=== PATIENT | male | born 1965 | race Caucasian/White ===

== ENCOUNTER 2021-07-13 15:30 | Outpatient (CLI) | payer OTHER, SELFPAY ==
[2021-07-13 15:46] LABS: Basophils Percent Auto 0.4 % (0.2-1.2); Eosinophils Absolute Auto 0.2 K/mm3 (0-0.3); Eosinophils Percent Auto 3.2 % (0-4.4); Hematocrit 50.2 % (42.0-52.0); Hemoglobin 16.3 g/dL (14.0-18.0); Immature Granulocyte Absolute 0.01 K/mm3 (0.00-0.031); Immature Granulocyte Percent A 0.1 % (0-0.5); Lymphocytes Absolute Auto 1.97 K/mm3 (0.9-3.2); Lymphocytes Percent Auto 28.9 % (18.3-44.2); Mean Corpuscular HGB Conc 32.5 g/dl (32-36); Mean Corpuscular Hemoglobin 28.7 pg (26-34); Mean Corpuscular Volume 88.4 fl (80-100); Mean Platelet Volume 9.6 fl (7.4-10.4); Monocytes Absolute Auto 0.6 K/mm3 (0.1-0.6); Monocytes Percent Auto 8.9 % (2.6-8.5); Neutrophils Percent Auto 58.5 % (45.5-73.1); Platelet Count Result 267 k/mm3 (150-375); Red Blood Count 5.68 M/mm3 (4.6-6.20); Red Cell Distribution Width 13.2 % (11.5-14.5); White Blood Count 6.8 K/mm3 (4.5-10.0)
== END 2021-07-13 15:31 | disposition home or self-care (01) ==
LOC: ANHLAB 15:35
PROVIDERS: PCP Family Medicine; Visit Provider Internal Medicine Hematology & Oncology
DX: D75.1 Secondary polycythemia (principal)
CPT/HCPCS: 36415; 85025

== ENCOUNTER 2022-01-08 11:29 | Outpatient (CLI) | payer OTHER, SELFPAY ==
--- NOTE | ~2022-01-08 | XR_ITS ---
EXAMINATION: XR chest 2V DATE: 01/08/2022 11:48 INDICATION: Syncope and collapse TECHNIQUE: PA and lateral views of the chest were obtained. COMPARISON: 03/24/2015 FINDINGS: The lungs are clear with no focal airspace opacities, pulmonary edema, pleural effusion or pneumothor ax. The cardiomediastinal silhouette is normal. Visualized bones and soft tissues are unremarkable. IMPRESSION: 1. No acute cardiopulmonary disease. Reviewed, dictated and finalized at location A. ILLERY LABORER
--- NOTE | 2022-01-08 11:46 | ECG_ITS ---
Measurements Intervals [place] Rate: 68 P: 9 NH: 168 QRS: -2 QRSD: 88 T: -1 QT: 386 QTc: 411 Interpretive Statements SINUS RHYTHM BORDERLINE ST-T WAVE ABNORMALITY- INFERIOR LEADS BASELINE ARTIFACT- V2 BORDERLINE ECG NO PREVIOUS ECG AVAILABLE FOR COMPARISON Electronically Signed On 01-08-2022 12:00:07 BALLAST REGULATOR OPERATOR by Lenny Garcia D.O.
== END 2022-01-08 11:30 | disposition home or self-care (01) ==
PROVIDERS: PCP Family Medicine; Visit Provider Physician Assistant Medical
DX: R55 Syncope and collapse (principal)
CPT/HCPCS: 71046; 93005

== ENCOUNTER 2022-02-05 12:56 | Outpatient (CLI) | payer OTHER, SELFPAY ==
--- NOTE | 2022-02-05 | ECHO_ITS ---
Patient Info Name: Ricki Yeh Brother Age: 56 years : 1965 Gender: Male Ht: 68 in Wt: 197 lbs BSA: 2.09 m2 HR: 74 bpm BP: 120 / 84 mmHg Heart Rhythm: Sinus Rhythm Technical Quality: Good Exam Date: 02/05/2022 2:30 PM Exam Location: [facility] Patient Status: Outpatient Admit Date: 02/05/2022 Staff Ordering Physician: ROBERTO GUTIERREZ MD Direct Mail Clerk: Conchis Shafer RDCS Attending Provider: ROBERTO GUTIERREZ MD Referring Physician: MATT TSE; Exam Type: CA echo doppler color flow Study Info Indications R55 - Syncope and collapse Complete two-dimensional, color flow and Doppler transthoracic echocardiogram is performed. Summary 1. Complete two-dimensional, color flow and Doppler transthoracic echocardiogram is performed. 2. Left ventricular chamber dimension is normal. 3. Left ventricular systolic function is normal, estimated at 60-65%. 4. There is mildly increased left ventricular wall thickness. 5. The left ventricular diastolic function is normal. 6. Global longitudinal strain is mildly elevated at -15 %. 7. The aortic valve is trileaflet. Focal calcification of noncoronary cusp is appreciated. 8. There is no aortic valve stenosis. 9. There is no aortic valve regurgitation. 10. There is trace mitral valve regurgitation. 11. There is mild tricuspid valve regurgitation. 12. No pulmonary hypertension, estimated pulmonary arterial systolic pressure is 29 mmHg. Left Ventricle Left ventricular chamber dimension is normal. Left ventricular systolic function is normal, estimated at 60-65%. There is mildly increased left ventricular wall thickness. The left ventricular diastolic function is normal. Global longitudinal strain is mildly elevated at -15 %. Right Ventricle Right ventricular chamber dimension is normal. Right ventricular systolic function is normal. Left Atria Left atrial chamber dimension is normal. Right Atria Right atrial chamber dimension is normal. Aortic Valve The aortic valve is trileaflet. Focal calcification of noncoronary cusp is appreciated. There is no aortic valve stenosis. There is no aortic valve regurgitation. Pulmonic Valve The pulmonic valve is not well visualized. Mitral Valve The mitral valve has normal leaflets. There is trace mitral valve regurgitation. Tricuspid Valve The tricuspid valve leaflets are normal. There is mild tricuspid valve regurgitation. No pulmonary hypertension, estimated pulmonary arterial systolic pressure is 29 mmHg. Pericardium/Pleural The pericardium appears epicardial fat pad. There is no pericardial effusion. Inferior Vena Cava Normal inferior vena cava with >50% collapse upon inspiration consistent with normal right atrial pressure, 5 mmHg. Aorta The aortic root size at the sinus of Valsalva is normal. Left Ventricular Outflow Tract Name Value Normal LVOT 2D LVOT Diameter 2.0 cm LVOT Doppler LVOT Peak Gradient 2 mmHg LVOT Mean Gradient 1 mmHg LVOT VTI 16 cm LVOT VTI/AV VTI Ratio
--- NOTE | ~2022-02-05 | US_ITS ---
EXAMINATION: US carotid duplex BI DATE: 02/05/2022 14:01 INDICATION: Syncope TECHNIQUE: Grayscale, color Doppler, and pulsed Doppler images of the cervical carotid arteries were obtained. The degree of vessel stenosis is placed in one of the following categories: normal, <50%, 5 0-69%, >=70% but less than near-occlusion, near-occlusion, or total occlusion. Note that percent sten osis relative to normal distal artery lumen diameter is indirectly measured from velocity measurement s as described by Johnnie, et al. Radiology 2003; 229:340-346. Notes: Normal: Peak systolic velocity <125 centimeters/sec and no plaque <50%. Peak systolic velocity <125 ( EDV <40; ICA/CCA PSV ratio <2.0; used these factors only a tandem lesions or low cardiac output or co ntralateral disease) 50-69 %: PSV 125-230 (EDV 40-100; ratio 2-4) >= 70% but less than near occlusion: PSV greater than 230 (EDV > 100; ratio> 4.0) Near Occlusion: PSV that is variable; markedly narrowed lumen Occlusion: Absent flow on color/spectral Doppler and no lumen on ford scale. COMPARISON: None. FINDINGS: RIGHT: The right common carotid artery (CCA) peak systolic velocity (PSV) is 87 cm/s. The right internal car otid artery (ICA) PSV is 93 cm/s. The right ICA end-diastolic velocity (EDV) is 19 cm/s. The right IC A/CCA PSV ratio is 1.1. The external carotid artery (ECA) PSV is 109 cm/s. There is antegrade flow in the right vertebral artery. LEFT: The left CCA PSV is 84 cm/s. The left ICA PSV is 78 cm/s. The left ICA EDV is 20 cm/s. The left ICA/C CA PSV ratio is 1.0. The ECA PSV is 111 cm/s. There is antegrade flow in the left vertebral artery. IMPRESSION: 1. Less than 50% stenosis in the right internal carotid artery by sonographic criteria. 2. Less than 50% stenosis in the left internal carotid artery by sonographic criteria. Reviewed, dictated and finalized at location A. LANE CAPTAIN IMPRESSION: 1. Less than 50% stenosis in the right internal carotid artery by sonographic lupillo boyd. 2. Less than 50% stenosis in the left internal carotid artery by sonographic joseph koehler.
== END 2022-02-05 12:57 | disposition home or self-care (01) ==
PROVIDERS: PCP Family Medicine
DX: R55 Syncope and collapse (principal); I65.23 Occlusion and stenosis of bilateral carotid arteries
CPT/HCPCS: 93306; 93880

== ENCOUNTER 2022-03-02 08:41 | Outpatient (CLI) | payer OTHER, SELFPAY ==
--- NOTE | 2022-03-02 13:54 | WPDNEUROLOGY ---
Neurology EEG Report General Information Date of Study: 03/02/22 TEST eeg DIAGNOSIS syncopal episode with collapse CONDITION OF RECORDING awake drowsy and sleep EEG NUMBER [id number] CLINICAL HISTORY patient reported couple of weeks ago he had a bad cold and lost consciousness 7 times within 30 hours from coughing
--- NOTE | 2022-03-02 14:00 | WPDNEUROLOGY ---
Neurology EEG Report General Information Date of Study: 03/02/22 TEST EEG DIAGNOSIS syncope and collapse CONDITION OF RECORDING awake drowsy and sleep EEG NUMBER [id number] CLINICAL HISTORY patient reports couple of weeks ago he had a bad cold and loss consciousness 7 times within 30 hours from coughing EEG DESCRIPTION background rhythm consists of low-voltage 15 to 21 hertz per 2nd beta activity with no alf posterior gradient. Bilateral symmetrical sleep activity seen during sleep admixed with regular EKG artifact. Hyperventilation not done. Photic stimulation produces normal drive. Non paroxysmal. Nonfocal. Nonlateralizing. IMPRESSION No significant abnormalities noted
== END 2022-03-02 08:42 | disposition home or self-care (01) ==
PROVIDERS: PCP Family Medicine; Visit Provider Family Medicine
DX: R55 Syncope and collapse (principal)
CPT/HCPCS: 95816

== ENCOUNTER 2022-04-18 15:15 | Outpatient (CLI) | payer OTHER, SELFPAY ==
[2022-04-18 15:24] LABS: Basophils Percent Auto 0.3 % (0.2-1.2); Eosinophils Absolute Auto 0.3 K/mm3 (0-0.3); Eosinophils Percent Auto 3.7 % (0-4.4); Hematocrit 49.3 % (42.0-52.0); Hemoglobin 16.5 g/dL (14.0-18.0); Immature Granulocyte Absolute 0.02 K/mm3 (0.00-0.031); Immature Granulocyte Percent A 0.3 % (0-0.5); Lymphocytes Absolute Auto 2.31 K/mm3 (0.9-3.2); Lymphocytes Percent Auto 29.3 % (18.3-44.2); Mean Corpuscular HGB Conc 33.5 g/dl (32-36); Mean Corpuscular Hemoglobin 27.4 pg (26-34); Mean Corpuscular Volume 81.8 fl (80-100); Mean Platelet Volume 9.3 fl (7.4-10.4); Monocytes Absolute Auto 0.7 K/mm3 (0.1-0.6); Monocytes Percent Auto 8.4 % (2.6-8.5); Neutrophils Absolute Auto 4.6 K/mm3 (1.3-6.7); Platelet Count Result 211 k/mm3 (150-375); Red Blood Count 6.03 M/mm3 (4.6-6.20); Red Cell Distribution Width 13.5 % (11.5-14.5); White Blood Count 7.9 K/mm3 (4.5-10.0)
== END 2022-04-18 15:16 | disposition home or self-care (01) ==
LOC: ANHLAB 15:16
PROVIDERS: PCP Family Medicine; Visit Provider Internal Medicine Hematology & Oncology
DX: D75.1 Secondary polycythemia (principal)
CPT/HCPCS: 36415; 85025

== ENCOUNTER → 2022-11-02 13:28 | Outpatient (CLI) | payer OTHER, SELFPAY ==
--- NOTE | ~2022-11-02 | XR_ITS ---
EXAMINATION: XR cervical spine min 6V DATE: 11/02/2022 13:54 INDICATION: Radiculopathy, cervical region. Neck pain radiating down left arm. TECHNIQUE: 8 views of cervical spine including flexion and extension views were obtained. COMPARISON: None. FINDINGS: Bone alignment is normal. There is no abnormal motion with flexion or extension. Vertebral body heights are normal. There is mildly decreased disc height at C4-C5 and C5-C6 and severely decrea sed disc height at C6-C7. There is multilevel uncovertebral joint osteoarthritis, severe bilaterally at C6-C7. There is multilevel mild facet joint osteoarthritis. There is moderate neural foraminal eleazar nosis bilaterally at C6-C7. There is mild central canal stenosis at C6-C7. No prevertebral soft tissu e swelling. IMPRESSION: 1. Severe cervical spondylosis. Reviewed, dictated and finalized at location E.
== END ==
PROVIDERS: PCP Family Medicine; Visit Provider Chiropractor
DX: M54.12 Radiculopathy, cervical region (principal); M43.02 Spondylolysis, cervical region
CPT/HCPCS: 72052

== ENCOUNTER 2023-11-22 13:24 | Outpatient (CLI) | payer OTHER, SELFPAY ==
--- NOTE | ~2023-11-22 | CT_ITS ---
Non-contrast Head CT History: Amnesia Technique: Axial non-contrast imaging of the brain was performed. Dose reduction technique was used on this scan by utilizing automated exposure control and iterative reconstruction technique. The dose -length product (DLP) was 599.57 mGy-cm. Findings: There is no evidence of intracranial hemorrhage, mass lesion, or acute infarct. Brain par enchyma appears normal. The ventricles and subarachnoid spaces are normal in size. The calvarium ap pears normal. The visualized paranasal sinuses and mastoid air cells are clear. Impression: No significant abnormality seen. Reviewed, dictated and finalized at location . Impression: No significant abnormality seen.
== END 2023-11-22 13:25 | disposition home or self-care (01) ==
PROVIDERS: PCP Family Medicine; Visit Provider Family Medicine
DX: R41.3 Other amnesia (principal); R42 Dizziness and giddiness
CPT/HCPCS: 70450

== ENCOUNTER 2024-02-07 11:46 | Outpatient (CLI) | payer OTHER, SELFPAY ==
[2024-02-07 11:54] LABS: Basophils Percent Auto 0.4 % (0.2-1.2); Eosinophils Absolute Auto 0.1 K/mm3 (0-0.3); Eosinophils Percent Auto 0.9 % (0-4.4); Hematocrit 42.3 % (42.0-52.0); Immature Granulocyte Absolute 0.02 K/mm3 (0.00-0.031); Immature Granulocyte Percent A 0.3 % (0-0.5); Lymphocytes Absolute Auto 0.72 K/mm3 (0.9-3.2); Lymphocytes Percent Auto 9.6 % (18.3-44.2); Mean Corpuscular HGB Conc 28.4 g/dl (32-36); Mean Corpuscular Hemoglobin 19.6 pg (26-34); Monocytes Absolute Auto 0.5 K/mm3 (0.1-0.6); Monocytes Percent Auto 6.8 % (2.6-8.5); Neutrophils Absolute Auto 6.1 K/mm3 (1.3-6.7); Platelet Count Result 179 k/mm3 (150-375); Red Blood Count 6.13 M/mm3 (4.6-6.20); Red Cell Distribution Width 19.8 % (11.5-14.5); White Blood Count 7.5 K/mm3 (4.5-10.0)
[2024-02-07 11:58] LABS: Anisocytosis 1+; Microcytosis 1+ (NORMAL); Ovalocytes 1+; Platelet Estimate Adequate (Adequate); Schistocytes None Seen
[2024-02-07 11:59] LABS: Poikilocytosis 1+
[2024-02-07 15:08] LABS: Iron 30 ug/dL (49-181)
[2024-02-07 15:22] LABS: Percent Iron Saturation 6 % (20-50)
[2024-02-07 15:46] LABS: Ferritin 4.78 ng/mL (11.1-264)
== END 2024-02-07 11:47 | disposition home or self-care (01) ==
PROVIDERS: PCP Family Medicine; Visit Provider Internal Medicine Hematology & Oncology
DX: D64.9 Anemia, unspecified (principal); D75.1 Secondary polycythemia
CPT/HCPCS: 36415; 82728; 83540; 83550; 85025

== ENCOUNTER 2024-03-26 13:41 | Outpatient (CLI) | payer OTHER, SELFPAY ==
--- NOTE | 2024-03-26 14:00 | ECG_ITS ---
Test Date: 2024-03-26 14:08:08 Measurements Intervals [place] Rate: 71 P: 32 FL: 177 QRS: -7 QRSD: 92 T: 15 QT: 377 QTc: 412 Interpretive Statements SINUS RHYTHM No previous ECG available for comparison Electronically Signed On 03-26-2024 14:14:57 SAFETY INVESTIGATOR by Gavi Lombardo
== END 2024-03-26 13:42 | disposition home or self-care (01) ==
PROVIDERS: PCP Family Medicine; Visit Provider Podiatrist Foot & Ankle Surgery
DX: R03.0 Elevated blood-pressure reading, without diagnosis of hypertension (principal)
CPT/HCPCS: 93005

== ENCOUNTER 2024-11-19 15:54 | Outpatient (CLI) | payer OTHER, SELFPAY ==
--- OUTSIDE RECORDS SUMMARY | 2024-11-19 11:00 | XMS_ITS | Encounter Summary ---
Author Organization [facility] Address [address] [place] [address] Care Team Providers Care Valuation Manager Name Role Phone Brock Abernathy MD Primary Care Provider [phone] Reason for Referral * Consultation (Routine) - Pending Review Specialty Diagnoses / Procedures Referred By Contac t Referred To Contact Neurology Diagnoses Gait disturbance Memory loss Syncope, unspecified syncope type Brock Abernathy MD [address] [place] [address] Phone: tel: fax: Drew Goldsmith MD [address] [place] [phone] Phone: tel: fax: Referral ID Status Reason Start Date Expiration Date Visits Requested Visits Authorized [id number] Pending Review Specialty Services Required 11/19/2024 12/19/2025 1 1 Question Answer Please select the performing region: [facility] [[id number]] Please select the performing department: [facility] BL[facility]LE 250 [[id number]] To Provider NOTE: we will do our best to honor your provider preference, but scheduling the patient in a timely manner in our clinic will take precedence. DREW GOLDSMITH [[id number]] # of visits: 1 Comments only please * MRI/CAT/PET Scan (Routine) - Pending Review Specialty Diagnoses / Procedures Referred By Contac t Referred To Contact Radiology Diagnoses Gait disturbance Memory loss Syncope, unspecified syncope type Procedures MRI Brain WO Contrast Brock Abernathy MD [address] [place] [phone] Phone: tel: fax: [facility] [address] [place] [address] Referral ID Status Reason Start Date Expiration Date V isits Requested Visits Authorized [id number] Pending Review 11/19/2024 12/19/2025 1 1 * Diagnostic Imaging (Routine) - Authorized Specialty Diagnoses / Procedures Referred By Amaya t Referred To Contact Diagnoses Liver cyst Procedures US Liver Brock Abernathy MD [address] [place] [phone] Phone: tel: fax: [facility] Referral ID Status Reason Start Date Expiration Date V isits Requested Visits Authorized [id number] Authorized 11/19/2024 12/19/2025 1 1 Reason for Visit * Reason Comments Establish Care Memory Loss Neurology referral ct scan results Encounter Details Date Type Department Care Team (Late st Contact Info) Description 11/19/2024 11:00 AM CDT Office Visit [facility] Family Medicine [address] [facility] [address] [place] [phone] Brock Abernathy MD [address] [place] [phone] Hypertension, essential (Primary Dx); Moderate major depression (HCC); Other hyperlipidemia; 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; Gastroesophageal reflux disease without esophagitis; Vitamin D insufficiency; Elevated TSH; Liver cyst; Gait disturbance; Memory loss; Syncope, unspecified syncope type; Polycythemia Social History Tobacco Use Types Packs/Day Years Used Date Smoking Tobacco: Never Smokeless Tobacco: Never Tobacco Cessation:Counseling Given: Not Answered Alcohol Use Standard Drinks/Week Comments Yes 0 (1 standard drink = 0.6 oz pur e alcohol) PHQ-2 Answer Date Recorded PHQ-2 Total Score (If total score is 3 or more points, staff should administer the PHQ-9) 0 11/19/2024 PHQ-9 Answer Date Recorded PHQ-9 Total Score 7 11/19/2024 AUDIT-C Answer Date Recorded Q1: How often do you have a drink containing alc ohol? Monthly or less 11/19/2024 Q2: How many drinks containi ng alcohol do you have on a typical day when you are drinking? 1 or 2 11/19/2024 Q3: How often do you have si x or more drinks on one occasion? Never 11/19/2024 Sex and Gender Information Value Date Recorded Sex Assigned at Not on file Legal Sex Male 4:29 AM [employer] Gender Identity Not on file Sexual Orientation Not on file documented as of this encounter Last Filed Vital Signs Vital Sign Reading Time Taken Comments Blood Pressure 112/68 11/19/2024 9:58 AM CDT Pulse 74 11/19/2024 9:58 AM CDT Temperature - - Respiratory Rate 18 11/19/2024 9:58 AM CDT Oxygen Saturation 94% 11/19/2024 9:58 AM CDT Inhaled Oxygen Concentration - - Weight 79.2 kg (174 lb 9.6 oz) 11/19/2024 9:58 A M CDT Height 172.7 cm (5' 8) 11/19/2024 9:58 AM CDT Body Mass Index 26.55 11/19/2024 9:58 AM CDT documented in this encounter Functional Status * AUDIT-C Score Answer Date of Assessment Author 1 11/19/2024 9:58 AM CDT Kendy Robb MA * Question Answer Date of Assessment Author Q1: How often do you have a drink containing alcohol? Monthly or less 11/19/2024 9:58 AM OLINDAT Saima Robb MA Q2: How many drinks containing alcohol do you have on a typical day when you are drinking? 1 or 2 11/19/2024 9:58 AM OLINDAT Casandra Robb MA Q3: How often do you have six or more drinks on one occasion? Never 11/19/2024 9:58 AM CDT Casandra Robb MA documented as of this encounter Patient Instructions * Patient Instructions* Brock Abernathy MD - 11/19/2024 11:00 AM CDT Check BP 5 times a week documented in this encounter Ordered Prescriptions Prescription Sig Dispense Quantity Refills Last Filled Start Date End Date omeprazole OTC (PriLOSEC OTC) 20 mg EC tabletIndications: Gastroesophageal reflux disease without esophagitis Take 1 tablet (20 mg total) by mouth daily for 120 doses 60 tablet 1 11/19/2024 03/19/2025 documented in this encounter Progress Notes * Brock Abernathy MD - 11/19/2024 11:00 AM CDT Images from the original note were not included. PATIENT VISIT Ricki Yeh Brother is a 59 y.o. male here for Chief Complaint Patient presents with [facility] Care Memory Loss Neurology referral ct scan results Past Surgical History: Procedure Laterality Date APPENDECTOMY ELBOW SURGERY Bilateral EYE SURGERY SHOULDER SURGERY Bilateral TONSILLECTOMY Family History Problem Relation Age of Onset Cancer Mother 50 - 59 Alzheimer's disease Father 70 - 79 Memory loss Father 50 - 59 Diabetes Brother 40 - 49 Social History Tobacco Use Smoking status: Never Smokeless tobacco: Never Substance and Sexual Activity Drug use: Never Sexual activity: Yes Partners: Female control/protection: None Alcohol Use: Not At Risk (11/19/2024) AUDIT-C Frequency of Alcohol Consumption: Monthly or less Average Number of Drinks: 1 or 2 Frequency of Binge Drinking: Never No Known Allergies Outpatient Encounter Medications as of 11/19/2024 Medication Sig Dispense Refill allopurinoL (ZYLOPRIM) 300 mg tablet Take 1 tablet (300 mg total) by mouth daily aspirin 81 mg enteric coated tablet Take 1 tablet (81 mg total) by mouth daily busPIRone (BUSPAR) 5 mg tablet 1 tablet (5 mg total) 3 (three) times a day losartan (COZAAR) 50 mg tablet Take 1 tablet (50 mg total) by mouth daily omeprazole (PriLOSEC) 40 mg capsule Take 1 capsule (40 mg total) by mouth daily rOPINIRole (REQUIP) 0.5 mg tablet Take 1 tablet (0.5 mg total) by mouth nightly at bedtime rosuvastatin (CRESTOR) 20 mg tablet Take 1 tablet (20 mg total) by mouth daily sertraline (ZOLOFT) 100 mg tablet Take 2 tablets (200 mg total) by mouth traZODone (DESYREL) 100 mg tablet TAKE 1 TABLET BY MOUTH EVERY DAY AT BEDTIME NEEDED FOR INSOMNIA No facility-administered encounter medications on file as of 11/19/2024. SUBJECTIVE: HPI: Patient with multiple chronic conditions, follows up with specialists Hypertension, currently controlled on losartan, however patient does have concerns of symptoms of hypotension sometimes there is a concern that blood pressure is over controlled, denies any headacheshowever does have blurry vision symptoms Patient had spells of passing out and syncope mainly related to intense reactions including laughter and cough. Patient had this issue for 3 years, full workup was completed at the time with no significant findings, it was decided that patient has vasovagal syncope, last episode was 1 month ago, patient's PCP prescribed omeprazole to decreased cough associated with GERD so patient can have less episodes of syncope, slightly improved but still have this episodes with laughter. Patient is suffering from issues with memory loss, mainly short-term memory, can not recall locations of things he put aside, recently has been asking people at work to teach him to do stuff he is todo very well previously, symptoms feels confused. Patient does have history of depression, was started recently on BuSpar in addition to Zoloft. He states his depression is very well controlled Patient also is concerned about tripping more frequently and his gait being abnormal sometimes, this all has been worsening in the last month Of note also, patient has been following up with Hematology for polycythemia, JAK2 testing was negative. Patient was donating blood to get hematocrit level down, however after donation patient started suffering from iron deficiency anemia. Patient is not a smoker. ROS: Review of Systems Constitutional: Negative for fatigue and unexpected weight change. Eyes: Positive for visual disturbance. Respiratory: Positive for cough. Negative for chest tightness and shortness of breath. Cardiovascular: Negative for chest pain, palpitations and leg swelling. Gastrointestinal: Negative for abdominal pain, constipation and diarrhea. Endocrine: Negative for cold intolerance and heat intolerance. Genitourinary: Delayed ejaculation Musculoskeletal: Positive for gait problem. Neurological: Positive for syncope. Negative for dizziness, weakness and headaches. Psychiatric/Behavioral: Positive for confusion and decreased concentration. Negative for agitation.The patient is not nervous/anxious. OBJECTIVE: BP 112/68 Pulse 74 Resp 18 Ht 172.7 cm (5' 8) Wt 79.2 kg (174 lb 9.6 oz) SpO2 94% BMI 26.55 kg/m?? Physical Exam Constitutional: General: He is not in acute distress. Appearance: Normal appearance. HENT: Head: Normocephalic and atraumatic. Neck: Vascular: No carotid bruit. Cardiovascular: Rate and Rhythm: Normal rate and regular rhythm. Heart sounds: No murmur heard. No gallop. Pulmonary: Effort: Pulmonary effort is normal. Breath sounds: Normal breath sounds. Musculoskeletal: Cervical back: Normal range of motion. Right lower leg: No edema. Left lower leg: No edema. Skin: General: Skin is warm. Capillary Refill: Capillary refill takes less than 2 seconds. Neurological: General: No focal deficit present. Mental Status: He is alert and oriented to person, place, and time. Motor: No weakness. Coordination: Coordination normal. Gait: Gait normal. Psychiatric: Mood and Affect: Mood normal. Behavior: Behavior normal. Judgment: Judgment normal. In Office Testing: No results found for this or any previous visit (from the past 4 hours). 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 Continue allopurinol Hypertension, essential Concerns for being over controlled, leading to hypotension and possible vasovagal syncope Continue losartan for now daily at the same time Instructed to obtain multiple blood pressure readings Might need to possibly stop the medication Gastroesophageal reflux disease without esophagitis No endoscopy performed Patient instructed taking the omeprazole as needed Orders: omeprazole OTC (PriLOSEC OTC) 20 mg EC tablet; Take 1 tablet (20 mg total) by mouth daily for 120 doses Vitamin D insufficiency Was found on previous labs on chart review Needs daily supplement of 2000 IU Elevated TSH Was found on chart review for previous labs T4 was unremarkable that time However patient is asymptomatic for tiredness confusion and sexual dysfunction Orders: Thyroid Function [place]; Future Liver cyst Incidental finding on CT abdomen Patient is concerned, we will pursue liver ultrasound to characterize the cyst Orders: US Liver; Future Gait disturbance Started 1 month ago associated with memory loss Concerns for drug-induced movement disorder Orders: Vitamin B12; Future Folate; Future MRI Brain WO Contrast; Future Ambulatory referral to Neurology; Future Memory loss Has been worsening in the last month There is a concern of serotonin syndrome from combining BuSpar and Zoloft Failed cognitive testing at his previous PCP office We will discuss possible discontinuation of BuSpar next visit Orders: Vitamin B12; Future Folate; Future MRI Brain WO Contrast; Future Ambulatory referral to Neurology; Future Syncope, unspecified syncope type Full workup was previously completed Likely vasovagal But currently developing symptoms of gait imbalance and memory loss Might benefit from Urology evaluation Orders: Thyroid Function [place]; Future Vitamin B12; Future Folate; Future MRI Brain WO Contrast; Future Ambulatory referral to Neurology; Future Brock Abernathy MD documented in this encounter Miscellaneous Notes * Assessment & Plan Note - Brock Abernathy MD - 11/19/2024 11:00 AM CDT Associated Problem(s): Moderate major depression (HCC) Currently controlled Continue current medications However there is a concern regarding serotonin syndrome * Assessment & Plan Note - Brock Abernathy MD - 11/19/2024 11:00 AM CDT Associated Problem(s): Other hyperlipidemia Mainly hyper triglyceridemia Last lab checked was in August of this year Continue rosuvastatin We will reassess lipid panel in 6 months * Assessment & Plan Note - Brock Abernathy MD - 11/19/2024 11:00 AM CDT Associated Problem(s): Gout In remission Continue allopurinol * Assessment & Plan Note - Brock Abernathy MD - 11/19/2024 11:00 AM CDT Associated Problem(s): Hypertension, essential Concerns for being over controlled, leading to hypotension and possible vasovagal syncope Continue losartan for now daily at the same time Instructed to obtain multiple blood pressure readings Might need to possibly stop the medication documented in this encounter Plan of Treatment Scheduled Orders Name Type Priority Associated Diagnoses Orde r Schedule US Liver Imaging Schedule Routine , Read Routine (OP Routine) Liver cyst Expected: 11/19/2024, Expires: 11/19/2025 MRI Brain WO Contrast Imaging Schedule Routine, Read Routine (OP Routine) Gait disturbance Memory loss Syncope, unspecified syncope type Expected: 11/19/2024, Expires: 11/19/2025 Vitamin B12 Lab Routine Gait disturbance Memory loss Syncope, unspecified syncope type Expected: 11/22/2024, Expires: 11/19/2025 Thyroid Function [place] Lab Routine Elevated TSH Syncope, unspecified syncope type Expected: 11/19/2024, Expires: 11/19/2025 Folate Lab Routine Gait disturbance Memory loss Syncope, unspecified syncope type Expected: 11/22/2024, Expires: 11/19/2025 Scheduled Referrals Name Type Priority Associated Diagnoses Orde r Schedule Ambulatory referral to Neurology Outpatient Referral Routine Gait disturbance Memory loss Syncope, unspecified syncope type Expected: 11/19/2024 (Approximate), Expires: 11/19/2025 documented as of this encounter Visit Diagnoses Diagnosis Hypertension, essential- Primary Unspecified essential hypertension Moderate major depression (HCC) Major depressive disorder, single episode, moderate Other hyperlipidemia 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 Gastroesophageal reflux disease without esophagitis Esophageal reflux Vitamin D insufficiency Elevated TSH Other abnormal blood chemistry Liver cyst Other specified disorders of liver Gait disturbance Abnormality of gait Memory loss Syncope, unspecified syncope type Polycythemia Polycythemia, secondary documented in this encounter Discontinued Medications Medication Sig Discontinue Reason Start Date End Da te omeprazole (PriLOSEC) 40 mg capsule Take 1 capsule (40 mg total) by mouth daily Therapy completed 08/15/2023 11/19/2024 documented as of this encounter Historical Medications * This list may reflect changes made after this encounter. rosuvastatin (CRESTOR) 20 mg tablet Take 1 tablet (20 mg total) by mouth daily 02/13/2021 losartan (COZAAR) 50 mg tablet Take 1 tablet (50 mg total) by mouth daily 03/16/2021 sertraline (ZOLOFT) 100 mg tablet Take 2 tablets (200 mg total) by mouth 12/22/2021 busPIRone (BUSPAR) 5 mg tablet 1 tablet (5 mg total) 3 (three) times a day 07/18/2024 traZODone (DESYREL) 100 mg tablet TAKE 1 TABLET BY MOUTH EVERY DAY AT BEDTIME NEEDED FOR INSOMNIA allopurinoL (ZYLOPRIM) 300 mg tablet Take 1 tablet (300 mg total) by mouth daily 03/14/2021 rOPINIRole (REQUIP) 0.5 mg tablet Take 1 tablet (0.5 mg total) by mouth nightly at bedtime 08/15/2023 aspirin 81 mg enteric coated tablet Take 1 tablet (81 mg total) by mouth daily omeprazole (PriLOSEC) 40 mg capsule Take 1 capsule (40 mg total) by mouth daily 08/15/2023 11/19/2024 added in this encounter Care Teams Valuation Manager Relationship Specialty Start Date End Date Brock Abernathy MD [address] [place] [phone] PCP - General Family Medicine 11/19/24 documented as of this encounter
--- OUTSIDE RECORDS SUMMARY | 2024-11-19 15:57 | XMS_ITS | Encounter Summary ---
Author Organization [facility] Address [address] [place] [id number] Care Team Providers Care Liver Trimmer Name Role Phone Shi Gonzales MD Primary Care Provider [phone] Encounter Details Date Type Department Care Team (Late st Contact Info) Description 01/31/2022 Abstract [place] [facility], [address] [phone] Sultana Black MA Social History Tobacco Use Types Packs/Day Years Used Date Smoking Tobacco: Never Smokeless Tobacco: Never Alcohol Use Standard Drinks/Week Comments Yes 0 (1 standard drink = 0.6 oz pur e alcohol) monthly Sex and Gender Information Value Date Recorded Sex Assigned at Not on file Legal Sex Male 4:41 PM CDT Gender Identity Not on file Sexual Orientation Not on file Occupation Industry Job Start Date Job End Date [employer] Not on file Not on file Not on file COVID-19 Exposure Response Date Recorded In the last 10 days, have tristan hannah been in contact with someone who was confirmed or suspected to have Coronavirus/COVID-19? No / Unsure 01/29/2022 10:30 AM [employer] documented as of this encounter Plan of Treatment Not on file documented as of this encounter Procedures Procedure Name Priority Date/Time Associated Diagnosis Comments LIPID PANEL Routine 09/14/2021 documented in this encounter Results * LIPID PANEL (09/14/2021) CHOLESTEROL 160 TRIGLYCERIDES 151 HDL 38 LDL (CALCULATED) 98 us Default History Genericprovider LABORATORY Final Result documented in this encounter Visit Diagnoses Not on filedocumented in this encounter Care Teams Liver Trimmer Relationship Specialty Start Date End Date Shi Gonzales MD [address] [place], [place] [phone] PCP - General FAMILY PRACTICE 01/10/22 documented as of this encounter
--- OUTSIDE RECORDS SUMMARY | 2024-11-19 15:57 | XMS_ITS | Clinical Summary ---
Author Organization [facility] Address [address] [place] [address] Care Team Providers Care Smash Hand Name Role Phone Shi Gonzales MD Primary Care Provider [phone] Allergies No known active allergies Medications allopurinoL (ZYLOPRIM) 300 mg tablet Take 300 mg by mouth daily. 2 Active losartan (COZAAR) 50 mg tablet Take 50 mg by mouth daily. 2 Active rosuvastatin (CRESTOR) 20 mg tablet Take 20 mg by mouth daily. 1 Active sertraline (ZOLOFT) 50 mg tablet Take 50 mg by mouth daily. 2 Active testosterone cypionate (DEPO-TESTOSTER ONE) 200 mg/mL Oil 200 mg. 4 Active tadalafil (CIALIS) 5 mg tablet TAKE 1 TO 4 TABLETS BY MOUTH ONCE DAILY NEEDED Active rOPINIRole (REQUIP) 0.5 mg tablet take 1 tablet by mouth every day at bedtime 4 Active omeprazole (PriLOSEC) 40 mg Capsule, Delayed Release(E.C.) Take 40 mg by mouth daily. 4 Active busPIRone (BUSPAR) 5 mg tablet 5 mg 3 times daily. 5 Active aspirin (ECOTRIN EC) 81 mg Tablet, Delayed Release (E.C.) Take 81 mg by mouth daily. Active pantoprazole (PROTONIX) 40 mg Tablet, Delayed Release (E.C.) Take 40 mg by mouth 2 times daily. 10/30/19 25 Discontinue d(Alternate therapy prescribed) Active Problems Problem Noted Date Diagnosed Date Erythrocytosis 03/23/2021 Encounters Date Type Department Care Team Description 10/29/2024 2:15 PM CDT Office Visit [facility] Oncology and Hematology - [place] [place] [address] Curry Bowles MD Polycythemia, secondary (Primary Dx); Elevated ferritin 10/29/2024 8:03 AM CDT - 10/29/2024 11:59 PM CDT Hospital Encounter [facility] CT Scan [address] [place] [id number] Shi Gonzales MD Discharge Disposition: Home or Self Care 10/27/2024 Orders Only [facility] Hematology - [place] [address] [place] [phone] Curry Bowles MD 08/25/2024 External Device Data [facility] ABSTRACTION Provider, Abstract from Last 3 Months Family History Medical History Relation Name Comments Breast Cancer Mother Relation Name Status Comments Brother Alive Father Mother Social History Tobacco Use Types Packs/Day Years Used Date Smoking Tobacco: Never Smokeless Tobacco: Never Tobacco Cessation:Counseling Given: Not Answered Alcohol Use Standard Drinks/Week Comments Yes 0 (1 standard drink = 0.6 oz pur e alcohol) Sex and Gender Information Value Date Recorded Sex Assigned at Not on file Legal Sex Male 12:37 PM MIXOLOGIST Gender Identity Not on file Sexual Orientation Not on file Last Filed Vital Signs Vital Sign Reading Time Taken Comments Blood Pressure 115/74 10/29/2024 2:05 PM CDT Pulse 78 10/29/2024 2:05 PM CDT Temperature 36.2 C (97.1 F) 10/29/2024 2:05 PM CDT Respiratory Rate 12 10/29/2024 2:05 PM CDT Oxygen Saturation 98% 10/29/2024 2:05 PM CDT Inhaled Oxygen Concentration - - Weight 80.1 kg (176 lb 9.6 oz) 10/29/2024 2:05 P M CDT Height 172.7 cm (5' 8) 07/13/2021 4:00 PM CDT Body Mass Index 26.85 07/13/2021 4:00 PM CDT Plan of Treatment Upcoming Encounters Date Type Department Care Team (Late st Contact Info) Description 02/04/2025 11:15 AM MIXOLOGIST Office Visit [facility] Oncology and Hematology - [place] [address] [place] [address] Curry Bowles MD [address] [place] [address] Health Maintenance Due Date Last Done Comments Pre-Diabetes and Diabetes Screening 1965 HEPATITIS B VACCINES (1 of 3 - 19+ 3-dose series) 1984 04/02/2024, 08/22/2023 COLORECTAL SCREENING 2010 Colorectal Cancer Screening 2010 FIT-DNA Q 3 years 2010 FIT/FOBT Q 1 year 2010 Flex Sig/CT Colonography Q 5 years 2010 ZOSTER VACCINE (2 of 2) 12/09/2020 10/14/2020, 07/12 INFLUENZA VACCINE (#1) 2024 , 11/18/2019, 12/23/2018, Additional history exists DTAP/TDAP/TD VACCINES (3 - T d or Tdap) 03/27/2028 03/27/2018, 02/16/2009 Procedures Procedure Name Priority Date/Time Associated Diagnosis Comments CT ABDOMEN W CONTRAST Routine 10/29/2024 8:54 AM CDT Abdominal swelling Constipation CBC WITH AUTODIFFERENTIAL Routine 10/26/2024 2:05 PM CDT from Last 3 Months Results * CT ABDOMEN W CONTRAST (10/29/2024 8:54 AM CDT) Anatomical Region Laterality Modality Abdomen Computed Tomogra phy 10/29/2024 8:51 AM CDT Impressions 10/29/2024 11:17 AM CDT IMPRESSION: 1. No acute finding. INCIDENTAL FINDINGS: None. The examination was performed with the adjustment of mA according to the patient size and/or the use of Iterative Reconstruction Technique. DICTATION LOCATION: Location 1 - [facility] Narrative 10/29/2024 11:17 AM CDT Exam: CT abdomen with contrast CONTRAST: IOPAMIDOL 61 % INTRAVENOUS SOLUTION (MULTI-DOSE BULK PACK) Given:100 mL Exam date: 10/29/2024 INDICATION: 59-year-old male with abdominal swelling in constipation. Epigastric abdominal pain. COMPARISON: None provided FINDINGS: No aggressive osseous lesion. Minimal calcified atherosclerotic plaque within the aorta and branch vessels. Lung base atelectasis. No pneumoperitoneum. Subcentimeter hypodense left hepatic lobe lesion, too small to characterize and statistically a cyst. Unremarkable gallbladder, pancreas, spleen and adrenal glands. Unremarkable kidneys. The visualized bowel loops are within normal limits. Surgical clips are noted in the right paracolic gutter. The appendix is surgically absent. Procedure Note Stephany Ivan MD - 10/29/2024 Exam: CT abdomen with contrast CONTRAST: IOPAMIDOL 61 % INTRAVENOUS SOLUTION (MULTI-DOSE BULK PACK) Given:100 mL Exam date: 10/29/2024 INDICATION: 59-year-old male with abdominal swelling in constipation. Epigastric abdominal pain. COMPARISON: None provided FINDINGS: No aggressive osseous lesion. Minimal calcified atherosclerotic plaque within the aorta and branch vessels. Lung base atelectasis. No pneumoperitoneum. Subcentimeter hypodense left hepatic lobe lesion, too small to characterize and statistically a cyst. Unremarkable gallbladder, pancreas, spleen and adrenal glands. Unremarkable kidneys. The visualized bowel loops are within normal limits. Surgical clips are noted in the right paracolic gutter. The appendix is surgically absent. IMPRESSION: 1. No acute finding. INCIDENTAL FINDINGS: None. The examination was performed with the adjustment of mA according to the patient size and/or the use of Iterative Reconstruction Technique. DICTATION LOCATION: Location 1 - [facility] Shi Gonzales MD CT ORDERABLES Final Result * CBC WITH AUTODIFFERENTIAL (10/26/2024 2:05 PM CDT) Blood Curry Bowles MD HEMATOLOGY ORDERABLES Final Res ult from Last 3 Months Insurance Care Teams Smash Hand Relationship Specialty Start Date End Date Shi Gonzales MD [address] [place] [phone] PCP - General Family Practice 03/23/21
--- OUTSIDE RECORDS SUMMARY | 2024-11-19 15:57 | XMS_ITS | Clinical Summary ---
Author Organization [facility] Address [address] [place] [address] Care Team Providers Care Distillery Manager Name Role Phone Brock Abernathy MD Primary Care Provider [phone] Allergies No known active allergies Medications aspirin 81 mg enteric coated tablet Take 1 tablet (81 mg total) by mouth daily Active rOPINIRole (REQUIP) 0.5 mg tablet Take 1 tablet (0.5 mg total) by mouth nightly at bedtime 4 Active allopurinoL (ZYLOPRIM) 300 mg tablet Take 1 tablet (300 mg total) by mouth daily 2 Active traZODone (DESYREL) 100 mg tablet TAKE 1 TABLET BY MOUTH EVERY DAY AT BEDTIME NEEDED FOR INSOMNIA Active busPIRone (BUSPAR) 5 mg tablet 1 tablet (5 mg total) 3 (three) times a day 5 Active sertraline (ZOLOFT) 100 mg tablet Take 2 tablets (200 mg total) by mouth 2 Active losartan (COZAAR) 50 mg tablet Take 1 tablet (50 mg total) by mouth daily 2 Active rosuvastatin (CRESTOR) 20 mg tablet Take 1 tablet (20 mg total) by mouth daily 1 Active omeprazole OTC (PriLOSEC OTC) 20 mg EC tabletIndication s:Gastroesophage al reflux disease without esophagitis Take 1 tablet (20 mg total) by mouth daily for 120 doses 60 tablet 1 5 03/19/19 26 Active omeprazole (PriLOSEC) 40 mg capsule Take 1 capsule (40 mg total) by mouth daily 4 11/20/19 25 Discontinu ed(Therapy completed) Active Problems Problem Noted Date Diagnosed Date Moderate major depression 11/19/2024 Assessment & Plan (11/19/2024 1:40 PM CDT): Currently controlled Continue current medications However there is a concern regarding serotonin syndrome Hypertension, essential 11/19/2024 Assessment & Plan (11/19/2024 1:40 PM CDT): Concerns for being over controlled, leading to hypotension and possible vasovagal syncope Continue losartan for now daily at the same time Instructed to obtain multiple blood pressure readings Might need to possibly stop the medication Gout 11/19/2024 Assessment & Plan (11/19/2024 1:40 PM CDT): In remission Continue allopurinol Other hyperlipidemia 11/19/2024 Assessment & Plan (11/19/2024 1:40 PM CDT): Mainly hyper triglyceridemia Last lab checked was in August of this year Continue rosuvastatin We will reassess lipid panel in 6 months Polycythemia 11/19/2024 Resolved Problems Problem Noted Date Diagnosed Date Resolved Date Chronic renal impairment, st age 3 (moderate), unspecified whether stage 3a or 3b CKD 11/19/2024 0 11/19/2024 Encounters Date Type Department Care Team Description 11/19/2024 11:00 AM CDT Office Visit [facility] Family Medicine [address] [place] [address] [address] [place] [address] Brock Abernathy MD Hypertension, essential (Primary Dx); Moderate major depression (HCC); Other hyperlipidemia; 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; Gastroesophageal reflux disease without esophagitis; Vitamin D insufficiency; Elevated TSH; Liver cyst; Gait disturbance; Memory loss; Syncope, unspecified syncope type; Polycythemia from Last 3 Months Immunizations Immunization Administration Dates Next Due Hep B / HiB 04/02/2024,08/22/2023 Heplisav-b (Hepatitis B) 04/02/2024,08/22/2023 Influenza, Quadrivalent, Rec ombinant, Egg Free, Preservative Free, Intramuscular 01/09/2018 Influenza, Quadrivalent, Spl it, Preservative Free, Intramuscular 01/28/2021,11/18/2019,12/23/2018,02/21 Influenza, Trivalent, Recomb inant, Egg Free, Preservative Free, Antibiotic Free, IM (FLUBLOK) 02/06/2024 Influenza, Unspecified 11/19/2024(Deferred: Bianca ent Refused) Pneumococcal Conjugate Pcv21 02/06/2024 Td, adsorbed 03/27/2018 Tdap 02/16/2009 ZOSTER Recombinant 10/14/2020,07/12/2020 Surgical History Surgery Date Site/Laterality Comments APPENDECTOMY EYE SURGERY SHOULDER SURGERY Bilateral ELBOW SURGERY Bilateral TONSILLECTOMY Medical History Medical History Date Comments GERD (gastroesophageal reflux disease) Hypertension Anxiety Family History Medical History Relation Name Comments Diabetes Brother Alzheimer's disease Father Memory loss Father Cancer Mother Relation Name Status Comments Brother [...] on file Legal Sex Male 4:29 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 Gender Identity Not on file Sexual Orientation Not on file Obstetrics History Last Filed Vital Signs Vital Sign Reading [...] Mass Index 26.55 11/19/2024 9:58 AM CDT Plan of Treatment Health Maintenance Due Date Last Done Comments Colon Cancer Screening-Colonoscopy 1965 Hepatitis C Screening 1965 Prostate Cancer Screening-PSA 1965 Regular Well Visit/Exam 18-03/02/1983 Influenza Vaccine (#1) 2024 , 01/28/2021, 11/18/2019, Additional history exists Depression Screening 11/19/2025 11/19/2024, 11/20/19 25 DTaP/Tdap/Td Vaccine (3 - Td or Tdap) 03/27/2028 03/27/2018, 02/16/2009 Zoster Vaccine Completed 10/14/2020, 07/12/2020 Covid-19 Vaccine Completed 02/06/2024, , 01/19/2021, Additional history exists Pneumococcal vaccine <65 Aged Out 02/06/2024 No longer eligible based on patient's age to complete this topic Hepatitis B Screening Completed 04/02/2024 , 04/02/2024, 08/22/2023, Additional history exists Insurance [facility] Care Teams Distillery Manager Relationship Specialty Start Date End Date Brock Abernathy MD [address] [facility] [place] [address] PCP - General Family Medicine 11/19/24
[2024-11-27 14:08] LABS: CALR + MPL + E12-E15 YES YES
== END 2024-11-19 15:55 | disposition home or self-care (01) ==
LOC: ANHLAB 15:55
PROVIDERS: PCP Family Medicine; Visit Provider Internal Medicine Hematology & Oncology
DX: D75.1 Secondary polycythemia (principal); R79.89 Other specified abnormal findings of blood chemistry
CPT/HCPCS: 81219; 81256; 81270; 82668

== ENCOUNTER 2025-02-03 09:33 | Outpatient (CLI) | payer OTHER, SELFPAY ==
[2025-02-03 09:59] LABS: Hematocrit 51.1 % (42.0-52.0); Hemoglobin 17.6 g/dL (14.0-18.0); Immature Granulocyte Percent A 0.2 % (0-0.5); Lymphocytes Absolute Auto 1.70 K/mm3 (0.9-3.2); Mean Corpuscular HGB Conc 34.4 g/dl (32-36); Mean Corpuscular Hemoglobin 29.5 pg (26-34); Mean Corpuscular Volume 85.7 fl (80-100); Nucleated Red Blood Cells Absolute Auto 0.000 K/mm3 (0.0-0.012); Nucleated Red Blood Cells Perc 0.0 % (0.0-0.2); Platelet Count Result 179 k/mm3 (150-375); Red Blood Count 5.96 M/mm3 (4.6-6.20); White Blood Count 8.3 K/mm3 (4.5-10.0)
--- OUTSIDE RECORDS SUMMARY | 2025-02-03 10:27 | XMS_ITS | Encounter Summary ---
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 No / Unsure 01/29/2022 10:30 AM RAP ARTIST documented as of this encounter Plan of [...] on filedocumented in this encounter Care Teams Trade Analyst Relationship Specialty Start Date End Date Shi Gonzales MD [address] [place], [place] [id number] PCP - General FAMILY PRACTICE 01/10/22 documented as of this encounter
--- OUTSIDE RECORDS SUMMARY | 2025-02-03 10:27 | XMS_ITS | Clinical Summary ---
Author Organization [facility] Rodolfoanthonyanderson díaz [facility] Address [address] [place] [address] Care Team Providers Care Luncheonette Operator Name Role Phone Shi Gonzales MD Primary Care Provider [phone] Allergies No known active allergies Medications allopurinoL (ZYLOPRIM) 300 mg tablet Take 300 mg by mouth daily. 03/14/2021 Active losartan (COZAAR) 50 mg tablet Take 50 mg by mouth daily. 03/16/2021 Active rosuvastatin (CRESTOR) 20 mg tablet Take 20 mg by mouth daily. 02/13/2021 Active sertraline (ZOLOFT) 50 mg tablet Take 50 mg by mouth daily. 03/12/2021 Active testosterone cypionate (DEPO-TESTOSTER ONE) 200 mg/mL Oil 200 mg. 01/23/2024 Active tadalafil (CIALIS) 5 mg tablet TAKE 1 TO 4 TABLETS BY MOUTH ONCE DAILY NEEDED Active rOPINIRole (REQUIP) 0.5 mg tablet take 1 tablet by mouth every day at bedtime 11/15/2023 Active omeprazole (PriLOSEC) 40 mg Capsule, Delayed Release(E.C.) Take 40 mg by mouth daily. 08/15/2023 Active busPIRone (BUSPAR) 5 mg tablet 5 mg 3 times daily. 07/18/2024 Active aspirin (ECOTRIN EC) 81 mg Tablet, Delayed Release (E.C.) Take 81 mg by mouth daily. Active Active Problems Problem Noted Date Diagnosed Date Erythrocytosis 03/23/2021 Encounters Date Type Department Care Team Description 12/30/2024 External Device Data ST[facility] ABSTRACTION Provider, Abstract 12/23/2024 External Device Data [facility] ABSTRACTION Provider, Abstract 12/08/2024 Abstract [facility] Oncology and Hematology - [place] [place] [phone] Curry Bowles MD 12/03/2024 4:30 PM CDT Telephone Check Up [facility] and Hematology - [place] [address] [place] [phone] Curry Bowles MD Polycythemia, secondary (Primary Dx) 11/30/2024 Telephone [facility] Oncology and Hematology - [place] [place] [address] Curry Bowles MD Lab Results 11/30/2024 Orders Only [facility] Oncology and Hematology - [place] [address] [place] [address] Curry Bowles MD 11/25/2024 Orders Only [facility] Oncology and Hematology - [place] [address] Curry Bowles MD 11/24/2024 Orders Only [facility] Oncology and Hematology - [place] [address] Curry Bowles MD from Last 3 Months Family History Medical [...] on file 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 Gender Identity Not on file Sexual Orientation [...] st Contact Info) Description 02/04/2025 11:15 AM HULL BUILDER Office Visit [facility] Oncology and Hematology - [place] [facility] [address] [place] [address] Curry Bowles MD [address] [facility] [address] [place] [address] Health Maintenance Due Date Last Done Comments Pre-Diabetes and Diabetes Screening 1965 HEPATITIS B VACCINES (1 of 3 - 19+ 3-dose series) 1984 04/02/2024, 08/22/2023 COLORECTAL SCREENING 2010 Colorectal Cancer Screening 2010 FIT-DNA Q 3 years 2010 FIT/FOBT Q 1 year 2010 Flex Sig/CT Colonography Q 5 years 2010 DTAP/TDAP/TD VACCINES (2 - T d or Tdap) 02/16/2019 02/16/2009 INFLUENZA VACCINE (#1) 2024 4, 01/28/2021, 11/18/2019, Additional history exists ZOSTER VACCINE Completed 10/14/2020, 07/12/2020 Procedures Procedure Name Priority Date/Time Associated Diagnosis Comments HEREDITARY HEMOCHROMATOSIS DNA MUTATION ANALYSIS Routine 11/19/2024 12:56 PM CDT JAK2 EXON 12 MUTATION ANALYSIS Routine 11/19/2024 10:54 AM CDT ERYTHROPOIETIN LEVEL Routine 11/19/2024 7:48 AM CDT from Last 3 Months Results * HEREDITARY HEMOCHROMATOSIS DNA MUTATION ANALYSIS (11/19/2024 12:56 PM CDT) us Curry Bowles MD CHEMISTRY ORDERABLES COM Final Result * JAK2 EXON 12 MUTATION ANALYSIS (11/19/2024 10:54 AM CDT) Blood us Curry Bowles MD HEMATOLOGY ORDERABLES COM Final Result * ERYTHROPOIETIN LEVEL (11/19/2024 7:48 AM CDT) Blood us Curry Bowles MD CHEMISTRY ORDERABLES Final Resu lt from Last 3 Months Insurance Care Teams Luncheonette Operator Relationship Specialty Start Date End Date Shi [place] MD [address] [place] [phone] PCP - General Family Practice 03/23/21
--- OUTSIDE RECORDS SUMMARY | 2025-02-03 10:27 | XMS_ITS | Clinical Summary ---
Author Organization [facility] Clinical [facility] Address [address] [place] [id number] Care Team Providers Care Toddler Lead Teacher Name Role Phone Brock Abernathy MD Primary Care Provider [phone] Allergies No known active allergies Medications aspirin [...] (200 mg total) by mouth 2 Active rosuvastatin (CRESTOR) 20 mg tablet Take 1 tablet (20 mg total) by mouth daily 1 Active omeprazole OTC (PriLOSEC OTC) 20 mg EC tabletIndication s:Gastroesophage al reflux disease without esophagitis Take 1 tablet (20 mg total) by mouth daily for 120 doses 60 tablet 1 5 03/19/19 26 Active tadalafiL (CIALIS) 5 mg tablet Take 1 tablet (5 mg total) by mouth daily as needed 4 Active Active Problems Problem Noted Date Diagnosed Date Moderate major depression 11/19/2024 Assessment & Plan (11/19/2024 1:40 PM CDT): Currently controlled Continue current medications However there is a concern regarding serotonin syndrome Hypertension, essential 11/19/2024 Assessment & Plan (12/24/2024 1:37 PM CDT): Over controlled, we will discontinue losartan We will continue to monitor closely ED precautions provided the patient Assessment & Plan (11/19/2024 1:40 PM CDT): [...] lipid panel in 6 months Polycythemia 11/19/2024 Assessment & Plan (12/24/2024 1:37 PM CDT): Continues to follow with Hematology Has hereditary hemochromatosis per heel cover splitter note Patient needs to undergo phlebotomy regularly Resolved Problems Problem Noted Date Diagnosed Date Resolved Date Chronic renal impairment, st age 3 (moderate), unspecified whether stage 3a or 3b CKD 11/19/2024 0 11/19/2024 Encounters Date Type Department Care Team Description 12/24/2024 10:30 AM CDT Office Visit [facility] Family Medicine [address] [place] [phone] Brock Abernathy MD Hypertension, essential (Primary Dx); Syncope, unspecified syncope type; Polycythemia; Simple hepatic cyst; Gait disturbance; Blurry vision, bilateral 12/24/2024 Telephone [place] [id number] [facility] [address] [place] [address] Brock Abernathy MD 12/17/2024 12:42 PM CDT - 12/17/2024 11:59 PM CDT Hospital Encounter [facility] Ultrasound [address] [place] [address] Liver cyst Discharge Disposition: Discharge to home or self care 11/30/2024 Results Follow-Up [address] [place] [address] Brock Abernathy MD Vitamin B12, Thyroid Function Donley, Folate 11/27/[address] [place] [address] Brock Abernathy MD Medical Question/Miscellaneo us 11/19/2024 11:00 AM CDT Office Visit [address] [place] [address] Brock Abernathy MD Hypertension, essential (Primary Dx); [...] points, staff should administer the PHQ-9) 0 12/24/2024 PHQ-9 Answer Date Recorded PHQ-9 Total Score 0 12/24/2024 AUDIT-C Answer Date Recorded Q1: How often [...] on file Legal Sex 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 CREW 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 Gender Identity Not on file Sexual Orientation Not on file Last Filed Vital Signs Vital Sign Reading Time Taken Comments Blood Pressure 112/70 12/24/2024 9:58 AM CDT Pulse 58 12/24/2024 9:58 AM CDT Temperature 36.1 C (96.9 F) 12/24/2024 9:58 AM CDT Respiratory Rate 18 11/19/2024 9:58 AM CDT Oxygen Saturation 95% 12/24/2024 9:58 AM CDT Inhaled Oxygen Concentration - - Weight 78.7 kg (173 lb 9.6 oz) 12/24/2024 9:58 A M CDT Height 172.7 cm (5' 8) 12/24/2024 9:58 AM CDT Body Mass Index 26.4 12/24/2024 9:58 AM CDT Plan of Treatment Health Maintenance Due Date Last Done Comments Colon Cancer Screening-Colonoscopy 1965 Hepatitis C Screening 1965 Prostate Cancer Screening-PSA 1965 Regular Well Visit/Exam 18-64 1983 Covid-19 Vaccine (2024- season) 2024 02/06/2024, 09/22/2021, 01/19/2021, Additional history exists Influenza Vaccine (#1) 2025 , 01/28/2021, 11/18/2019, Additional history exists Postponed from 11/02/2024 (Patient declined, but will receive in the future) Depression Screening 12/24/2025 12/24/2024, 12/24/2024, 11/19/2024, Additional history exists DTaP/Tdap/Td Vaccine (3 - Td or Tdap) 03/27/2028 03/27/2018, 02/16/2009 Zoster Vaccine Completed 10/14/2020, 07/12/2020 Pneumococcal vaccine <65 Aged Out 02/06/2024 No longer eligible based on patient's age to complete this topic Hepatitis B Screening Completed 04/02/2024 , 04/02/2024, 08/22/2023, Additional history exists Procedures Procedure Name Priority Date/Time Associated Diagnosis Comments US LIVER Schedule Routine, Read Routine (OP Routine) 12/17/2024 1:07 PM CDT Liver cyst FOLATE Routine 11/27/2024 10:13 AM CDT Gait disturbance Memory loss Syncope, unspecified syncope type VITAMIN B12 Routine 11/27/2024 10:13 AM CDT Gait disturbance Memory loss Syncope, unspecified syncope type THYROID FUNCTION CASCADE Routine 11/27/2024 10:12 AM CDT Elevated TSH Syncope, unspecified syncope type from Last 3 Months Results * US Liver (12/17/2024 1:07 PM CDT) Anatomical Region Laterality Modality Abdomen N/A Ultrasound 12/19/2024 9:10 AM CDT Narrative 12/19/2024 9:12 AM CDT EXAM DESCRIPTION: US LIVER REASON FOR STUDY: findings of liver cyst on CT abdomen TECHNIQUE: Grayscale images acquired of the liver and recorded on PACS. Additional selected color Doppler and spectral images recorded. Selected velocities recorded. COMPARISON: None available FINDINGS: LIVER: Normal in size measuring 16.9 cm in cephalo caudad dimension. Antegrade flow portal vein. Hypoechoic focus under the hemidiaphragms measures 1.0 cm most suggestive of simple cysts. LIVER VASCULATURE: The main portal vein is patent with antegrade flow. GALLBLADDER: The gallbladder appears unremarkable. No cholelithiasis. No gallbladder wall thickening or pericholecystic fluid. No positive sonographic Lincoln sign reported. BILIARY: No ductal dilatation. Common duct measures 0.2 cm . ASCITES: None. OTHER: No other significant finding. IMPRESSION: 1.0 cm hypoechoic focus under the hemidiaphragm most suggestive of simple hepatic cyst. THIS IS AN ELECTRONICALLY VERIFIED FINAL REPORT 12/19/2024 9:12 AM - Electronically signed by Chang Pal M.D. RB: [facility] Report ID: [id number] Reading Location: [id number] Procedure Note Chang Pal MD - 12/19/2024 EXAM DESCRIPTION: US LIVER REASON FOR STUDY: findings of liver cyst on CT abdomen TECHNIQUE: Grayscale images acquired of the liver and recorded on PACS. Additional selected color Doppler and spectral images recorded. Selected velocities recorded. COMPARISON: None available FINDINGS: LIVER: Normal in size measuring 16.9 cm in cephalo caudad dimension. Antegrade flow portal vein. Hypoechoic focus under the hemidiaphragms measures 1.0 cm most suggestiveof simple cysts. LIVER VASCULATURE: The main portal vein is patent with antegrade flow. GALLBLADDER: The gallbladder appears unremarkable. No cholelithiasis.No gallbladder wall thickening or pericholecystic fluid. No positivesonographic Lincoln sign reported. BILIARY: No ductal dilatation. Common duct measures 0.2 cm . ASCITES: None. OTHER: No other significant finding. IMPRESSION: 1.0 cm hypoechoic focus under the hemidiaphragm mostsuggestive of simple hepatic cyst. THIS IS AN ELECTRONICALLY VERIFIED FINAL REPORT 12/19/2024 9:12 AM - Electronically signed by Chang Pal M.D. RB: SIERRA Report ID: [id number] Reading Location: [place] [address] Brock Abernathy MD IMG US PROCEDURES Final Result * Folate (11/27/2024 10:13 AM CDT) Pathologist [facility] Folate 5.1 >3.0 ng/mL [facility] - 01 Comment: A serum folate concentration of less than 3.1 ng/mL is considered to represent clinical deficiency. Blood 11/27/2024 10:1 3 AM CDT 11/27/2024 Narrative [facility] - 11/28/2024 9:36 AM CDT Performed at: [facility] [employer] [id number] Fleet Administrator: Silver Borja PhD, Phone: [phone] Brock Abernathy MD LAB BLOOD ORDERABLES Final Resu lt Performing Organization Address [facility]/ZIP Co de Phone Number [facility] - * Vitamin B12 (11/27/2024 10:13 AM CDT) Pathologist [facility] Vitamin B12 459 232 - 1,245 pg/mL [facility] - 01 Blood 11/27/2024 10:1 3 AM CDT 11/27/2024 Narrative [facility] - 11/28/2024 9:36 AM CDT Performed at: [facility] [employer] [id number] Fleet Administrator: Silver Borja PhD, Phone: [phone] Brock Abernathy MD LAB BLOOD ORDERABLES Final Resu lt Performing Organization Address City/[facility]/ZIP Co de Phone Number [facility] - 01 * Thyroid Function Donley (11/27/2024 10:12 AM CDT) TSH 1.930 0.450 - 4.500 uIU/mL [facility] - 01 Comment: No apparent thyroid disorder. Additional testing not indicated. In rare instances, Secondary Hypothyroidism as well as Subclinical Hypothyroidism have been reported in some patients with normal TSH values. Blood 11/27/2024 10:1 2 AM CDT 11/27/2024 Narrative [facility] - 11/28/2024 9:36 AM CDT Performed at: - [facility] [id number] Fleet Administrator: Silver Borja PhD, Phone: [phone] us Brock Abernathy MD LAB BLOOD ORDERABLES Final Resu lt [facility] - 01 from Last 3 Months Insurance [facility] Care Teams Toddler Lead Teacher Relationship Specialty Start Date End Date Brock Abernathy MD [address] [place] [address] PCP - General Family Medicine 11/19/24
--- OUTSIDE RECORDS SUMMARY | 2025-02-03 10:27 | XMS_ITS | Clinical Summary ---
Author Organization [facility] Address [address] [place] [address] Care Team Providers Care Shelf Stocker Name Role Phone Shi Gonzales MD Primary Care Provider [phone] Allergies No known active allergies Medications allopurinol (ZYLOPRIM) 300 MG tablet Take 1 tablet (300 mg total) by mouth daily. 01/06/2022 Active losartan (COZAAR) 50 MG tablet Take 1 tablet (50 mg total) by mouth daily. 01/06/2022 Active rosuvastatin (CRESTOR) 20 MG tablet Take 1 tablet (20 mg total) by mouth daily. 12/22/2021 Active sertraline (ZOLOFT) 100 MG tablet Take 1 tablet (100 mg total) by mouth daily. 12/22/2021 Active tadalafil (CIALIS) 5 MG tablet Take 1 tablet (5 mg total) by mouth as needed. Active pantoprazole EC (PROTONIX) 40 MG tablet Take 1 tablet (40 mg total) by mouth 2 (two) times daily. Active sertraline (ZOLOFT) 50 MG tablet Take 1 tablet (50 mg total) by mouth daily. 07/20/2021 Active Active Problems No known active problems Family History Medical History Relation Comments Diabetes Brother Hyperlipidemia Brother Hypertension Brother Breast Cancer Mother COPD Mother Relation Status Comments Brother Alive Father Maternal Grandfather Maternal Grandmother Mother Paternal Grandfather Paternal Grandmother Social History Tobacco Use Types Packs/Day Years Used Date Smoking Tobacco: Never Passive Smoke Exposure: Never Smokeless Tobacco: Never Tobacco Cessation:Counseling Given: No Alcohol Use Standard Drinks/Week Comments Yes 0 (1 standard drink = 0.6 oz pur e alcohol) monthly PHQ-2 Answer Date Recorded Patient Health Questionnaire-2 Score 0 05/29/2022 Sex and Gender Information Value Date Recorded Sex Assigned at Not on file Legal Sex Male 4:41 PM CDT Gender Identity Not on file Sexual Orientation Not on file Occupation Industry Job Start Date Job End Date [employer] Not on file Not on file Not on file Last Filed Vital Signs Vital Sign Reading Time Taken Comments Blood Pressure 136/88 05/29/2022 11:00 AM CDT Pulse 83 05/29/2022 10:30 AM CDT Temperature 36.5 C (97.7 F) 05/29/2022 10:30 AM CDT Respiratory Rate - - Oxygen Saturation 94% 05/29/2022 10: 30 AM CDT Inhaled Oxygen Concentration - - Weight 90.1 kg (198 lb 11.2 oz) 023 10:30 AM CDT Height 172.7 cm (5' 8) 05/29/2022 10:3 0 AM CDT Body Mass Index 30.21 05/29/2022 10:30 AM CDT Plan of Treatment Health Maintenance Due Date Last Done Comments Colorectal Cancer Screening Colonoscopy (10 Years) 1965 Annual Physical 1968 Hepatitis C 1983 Pneumococcal Vaccine: 50+ Years (1 of 1 - PCV) 2015 COVID-19 Vaccine (5 - season) 2024 09/22/2021, 01/19/2021, 05/17/2020, Additional history exists Influenza Adult (#1) 2024 01/28/2021, 11/18/2019, 12/23/2018, Additional history exists DTaP, Tdap and Td Vaccines (3 - Td or Tdap) 03/27/2028 03/27/2018, 02/16/2009 Zoster Vaccines Completed 10/14/2020, 07/12/2020 Hepatitis A Vaccines Aged Out No long er eligible based on patient's age to complete this topic Meningococcal B Vaccine Aged Out No l onger eligible based on patient's age to complete this topic Meningococcal Vaccine Aged Out No cici carla eligible based on patient's age to complete this topic RSV Immunizations Under 20 Months Aged Out No longer eligible based on patient's age to complete this topic Insurance R Care Teams Shelf Stocker Relationship Specialty Start Date End Date Shi Gonzales MD [address] [place] [address] PCP - General FAMILY PRACTICE 01/10/22
[2025-02-03 12:19] LABS: Alanine Aminotransferase 35 U/L (6-50); Albumin Level 4.7 g/dL (3.5-5.1); Alkaline Phosphatase 65 U/L (38-126); Anion Gap 6 mmol/L (4-12); Aspartate Amino Transferase 60 U/L (17-59); Bilirubin,Total 0.8 mg/dL (0.2-1.3); Blood Urea Nitrogen 19 mg/dL (9-20); Calcium 9.1 mg/dL (8.4-10.2); Carbon Dioxide 32 mmol/L (22-30); Chloride 101 mmol/L (98-107); Estimated Glomerular Filt Rate > 60; Glucose 94 mg/dL (65-110); Potassium 4.3 mmol/L (3.4-5.0); Sodium 139 mmol/L (137-145); Total Protein 7.8 g/dL (6.3-8.2)
[2025-02-04 09:05] LABS: Iron 77 ug/dL (49-181)
[2025-02-04 09:47] LABS: Ferritin 60.10 ng/mL (11.1-264)
== END 2025-02-03 09:34 | disposition home or self-care (01) ==
LOC: ANHLAB 09:34
PROVIDERS: PCP Family Medicine; Visit Provider Internal Medicine Hematology & Oncology
DX: D75.1 Secondary polycythemia (principal)
CPT/HCPCS: 36415; 80053; 82728; 83540; 85025

== ENCOUNTER 2025-02-04 10:45 | Outpatient (CLI) | payer OTHER, SELFPAY ==
--- OUTSIDE RECORDS SUMMARY | 2025-02-04 09:30 | XMS_ITS | Encounter Summary ---
Author Organization [facility] Address [address] [place] [address] Care Team Providers Care Heating Worker Name Role Phone Brock Abernathy MD Primary Care Provider [phone] Reason for Referral * Consultation (Routine) - Pending Review Specialty Diagnoses / Procedures Referred By Amaya booker Referred To Contact Gastroenterology Diagnoses Screening for colon cancer Brock Abernathy MD [address] [place] [address] Phone: tel: fax: [facility] Gastroenterology at [address] [place] [address] Phone: tel: fax: Referral ID Status Reason Start Date Expiration Date Visits Requested Visits Authorized [id number] Pending Review Specialty Services Required 02/04/2025 03/06/2026 1 1 Question Answer Please select the performing region: [facility] [[id number]] Please select the performing department: [facility] [[id number]] # of visits: [address] Ku TRONIC GAME DEVELOPER Reason for Visit * Reason Comments Follow-up Encounter Details Date Type Department Care Team (Late st Contact Info) Description 02/04/2025 9:30 AM ELECTRONIC GAME DEVELOPER Office Visit [facility] Family Medicine [address] [place] [address] [place] [phone] Brock Abernathy MD [address] [place] [phone] Hypertension, essential (Primary Dx); Constipation, unspecified constipation type; Screening for colon cancer; Memory impairment Social History Tobacco Use Types Packs/Day Years Used Date Smoking Tobacco: Never Smokeless Tobacco: Never Alcohol Use Standard Drinks/Week Comments Yes 0 (1 standard drink = 0.6 oz pur e alcohol) PHQ-2 Answer Date Recorded PHQ-2 Total Score (If total score is 3 or more points, staff should administer the PHQ-9) 0 02/04/2025 PHQ-9 Answer Date Recorded PHQ-9 Total Score 0 02/04/2025 AUDIT-C Answer Date Recorded Q1: How often [...] on file Legal Sex Male 4:29 AM ELECTRONIC GAME DEVELOPER Gender Identity Not on file Sexual Orientation Not on file documented as of this encounter Last Filed Vital Signs Vital Sign Reading Time Taken Comments Blood Pressure 114/70 02/04/2025 9:22 AM ELECTRONIC GAME DEVELOPER Pulse 84 02/04/2025 9:22 AM ELECTRONIC GAME DEVELOPER Temperature - - Respiratory Rate 18 02/04/2025 9:22 AM ELECTRONIC GAME DEVELOPER Oxygen Saturation 97% 02/04/2025 9:22 AM ELECTRONIC GAME DEVELOPER Inhaled Oxygen Concentration - - Weight 79.7 kg (175 lb 9.6 oz) 02/04/2025 9:22 AM ELECTRONIC GAME DEVELOPER Height 172.7 cm (5' 8) 02/04/2025 9:22 AM ELECTRONIC GAME DEVELOPER Body Mass Index 26.7 02/04/2025 9:22 AM ELECTRONIC GAME DEVELOPER documented in this encounter Ordered Prescriptions Prescription Sig Dispense Quantity Refills Last Filled Start Date End Date senna (Senna Lax) 8.6 mg tabletIndications:C onstipation, unspecified constipation type Take 1 tablet by mouth daily 30 tablet 1 02/04/2025 documented in this encounter Progress Notes * Brock Abernathy MD - 02/04/2025 9:30 AM CST Images from the original note were not included. PATIENT VISIT Ricki A Brother is a 59 y.o. male here for Chief Complaint Patient presents with Follow-up No Known Allergies Outpatient Encounter Medications as of 02/04/2025 Medication Sig Dispense Refill aspirin 81 mg enteric coated tablet Take 1 tablet (81 mg total) by mouth daily busPIRone (BUSPAR) 5 mg tablet 1 tablet (5 mg total) 3 (three) times a day omeprazole OTC (PriLOSEC OTC) 20 mg EC tablet Take 1 tablet (20 mg total) by mouth daily for 120 doses 60 tablet 1 rOPINIRole (REQUIP) 0.5 mg tablet Take 1 tablet (0.5 mg total) by mouth nightly at bedtime rosuvastatin (CRESTOR) 20 mg tablet Take 1 tablet (20 mg total) by mouth daily sertraline (ZOLOFT) 100 mg tablet Take 2 tablets (200 mg total) by mouth tadalafiL (CIALIS) 5 mg tablet Take 1 tablet (5 mg total) by mouth daily as needed traZODone (DESYREL) 100 mg tablet TAKE 1 TABLET BY MOUTH EVERY DAY AT BEDTIME NEEDED FOR INSOMNIA [DISCONTINUED] allopurinoL (ZYLOPRIM) 300 mg tablet Take 1 tablet (300 mg total) by mouth daily senna (Senna Lax) 8.6 mg tablet Take 1 tablet by mouth daily 30 tablet 1 No facility-administered encounter medications on file as of 02/04/2025. SUBJECTIVE: HPI: Patient presented for follow up on lightheadedness, losartan for hypertension was previously stopped in the last visit, patient has been feeling significantly better, blood pressure is well controlled today with no medications Of note patient also stopped allopurinol on his own 1 month ago because he did not have gout in so long, discussed with patient that he needs to be cautious of the symptoms of gout and reach out if any symptoms occurred Patient did mention concerns regarding constipation, constant usually has 1 bowel movement a day but some days can go without having any bowel movements and he would have bloating feeling and discomfort has been using Colace nesn-aog-iqzdtog with minimal improvement. No blood in the stool Patient was asked about eye exam that was previously recommended, did not complete labs for copper serum level, patient states that he had a general eye exam with no significant findings, no available records and patient can not recall the name of the doctor that did the eye exam ROS: Review of Systems Constitutional: Negative for fatigue. Eyes: Negative for visual disturbance. Respiratory: Negative for chest tightness and shortness of breath. Cardiovascular: Negative for chest pain and leg swelling. Gastrointestinal: Positive for constipation. Negative for abdominal pain and blood in stool. Musculoskeletal: Negative for gait problem. Neurological: Negative for dizziness and headaches. Psychiatric/Behavioral: Negative for sleep disturbance. OBJECTIVE: BP 114/70 Pulse 84 Resp 18 Ht 172.7 cm (5' 8) Wt 79.7 kg (175 lb 9.6 oz) SpO2 97% BMI 26.70 kg/m?? Physical Exam Constitutional: General: He is not in acute distress. Cardiovascular: Rate and Rhythm: Normal rate and regular rhythm. Pulmonary: Effort: Pulmonary effort is normal. Breath sounds: Normal breath sounds. No wheezing. Abdominal: General: Abdomen is flat. Palpations: Abdomen is soft. Tenderness: There is no abdominal tenderness. Musculoskeletal: Cervical back: Normal range of motion. Right lower leg: No edema. Left lower leg: No edema. Lymphadenopathy: Cervical: No cervical adenopathy. Skin: General: Skin is warm. Capillary Refill: Capillary refill takes less than 2 seconds. Findings: No erythema. Neurological: General: No focal deficit present. Mental Status: He is alert and oriented to person, place, and time. Psychiatric: Mood and Affect: Mood normal. Behavior: Behavior normal. Thought Content: Thought content normal. In Office Testing: No results found for this or any previous visit (from the past 4 hours). Assessment & Plan Hypertension, essential Losartan was stopped last visit, blood pressure remains to be controlled Controlled blood pressure with the medications, continue to monitor closely No more episodes of lightheadedness and dizziness Constipation, unspecified constipation type Patient has been dealing with constipation for while Takes Colace daily yenh-mje-pgvqota with slight improvement Take senna laxative with Colace daily Patient was encouraged to reach out if it is not improving, can add on MiraLax as needed Patient will have a screening colonoscopy as referred Orders: senna (Senna Lax) 8.6 mg tablet; Take 1 tablet by mouth daily Screening for colon cancer Orders: Ambulatory referral to Gastroenterology; Future Memory impairment Patient remains to have short-term memory issues Per patient has improved slightly and then became worse Patient was ordered an MRI and neurology referral, encouraged to complete B12 and folic acid were unremarkable Brock Abernathy MD TRONIC GAME DEVELOPER documented in this encounter Miscellaneous Notes * Assessment & Plan Note - Brock Abernathy MD - 02/04/2025 9:30 AM CSTAssociated Problem(s): Hypertension, essential Losartan was stopped last visit, blood pressure remains to be controlled Controlled blood pressure with the medications, continue to monitor closely No more episodes of lightheadedness and dizziness TRONIC GAME DEVELOPER * Assessment & Plan Note - Brock Abernathy MD - 02/04/2025 9:30 AM CSTAssociated Problem(s): Constipation Patient has been dealing with constipation for while Takes Colace daily onvd-rfy-qsvwiaa with slight improvement Take senna laxative with Colace daily Patient was encouraged to reach out if it is not improving, can add on MiraLax as needed Patient will have a screening colonoscopy as referred Orders: senna (Senna Lax) 8.6 mg tablet; Take 1 tablet by mouth daily TRONIC GAME DEVELOPER * Assessment & Plan Note - Brock Abernathy MD - 02/04/2025 9:30 AM CSTAssociated Problem(s): Memory impairment Patient remains to have short-term memory issues Per patient has improved slightly and then became worse Patient was ordered an MRI and neurology referral, encouraged to complete B12 and folic acid were unremarkable TRONIC GAME DEVELOPER documented in this encounter Plan of Treatment Scheduled Referrals Name Type Priority Associated Diagnoses Order Schedule Ambulatory referral to Gastroenterology Outpatient Referral Routine Screening for colon cancer Expected: 02/04/2025 (Approximate), Expires: 02/04/2026 documented as of this encounter Visit Diagnoses Diagnosis Hypertension, essential- Primary Unspecified essential hypertension Constipation, unspecified constipation type Screening for colon cancer Special screening for malignant neoplasms, colon Memory impairment Memory loss documented in this encounter Discontinued Medications Medication Sig Discontinue Reason Start Date End Da te allopurinoL (ZYLOPRIM) 300 mg tablet Take 1 tablet (300 mg total) by mouth daily Patient Reported 03/14/2021 02/04/2025 documented as of this encounter Care Teams Heating Worker Relationship Specialty Start Date End Date Brock Abernathy MD [address] [place] [place] [id number] PCP - General Family Medicine 11/19/24 documented as of this encounter
--- OUTSIDE RECORDS SUMMARY | 2025-02-04 11:15 | XMS_ITS | Encounter Summary ---
Author Organization [facility] Address [address] [place] [address] Care Team Providers Care Biological Science Aide Name Role Phone Shi Gonzales MD Primary Care Provider [phone] Encounter Details Date Type Department Care Team (Late st Contact Info) Description 02/04/2025 11:15 AM MORTGAGE PROTECTION SALES Office Visit [facility] Oncology and Hematology - Ricardo [address] [facility] [address] [place] [address] Curry Bowles MD [address] [facility] [address] [place] [address] Elevated ferritin (Primary Dx) Social History Tobacco Use Types Packs/Day Years Used Date Smoking Tobacco: Never Smokeless Tobacco: Never Tobacco Cessation:Counseling Given: Not Answered Alcohol Use Standard Drinks/Week Comments Yes 0 (1 standard drink = 0.6 oz pur e alcohol) Sex and Gender Information Value Date Recorded Sex Assigned at Not on file Legal Sex Male 12:37 PM MORTGAGE PROTECTION SALES Gender Identity Not on file Sexual Orientation Not on file documented as of this encounter Last Filed Vital Signs Vital Sign Reading Time Taken Comments Blood Pressure 110/76 02/04/2025 11:05 AM MORTGAGE PROTECTION SALES Pulse 72 02/04/2025 11:05 AM MORTGAGE PROTECTION SALES Temperature 36.1 C (97 F) 02/04/2025 11:05 AM MORTGAGE PROTECTION SALES Respiratory Rate 15 02/04/2025 11:05 AM MORTGAGE PROTECTION SALES Oxygen Saturation 98% 02/04/2025 11:05 AM MORTGAGE PROTECTION SALES Inhaled Oxygen Concentration - - Weight 79.6 kg (175 lb 6.4 oz) 02/04/2025 11:05 AM MORTGAGE PROTECTION SALES Height - - Body Mass Index 26.67 07/13/2021 4:00 PM CDT documented in this encounter Plan of Treatment Upcoming Encounters Date Type Department Care Team (Late st Contact Info) Description 08/05/2025 11:30 AM CDT Office Visit [facility] Oncology and Hematology - Ricardo [address] [facility] [address] [place] [address] Curry Bowles MD [address] [facility] [address] [place] [address] Scheduled Orders Name Type Priority Associated Diagnoses Orde r Schedule CBC WITHOUT DIFFERENTIAL Lab Stat Elevated ferritin Expected: 08/05/2025, Expires: 02/04/2026 FERRITIN Lab Routine Elevated ferritin Expected: 08/05/2025, Expires: 02/04/2026 IRON, TIBC, AND PERCENT SATURATION Lab Routine Elevated ferritin Expected: 08/05/2025, Expires: 02/04/2026 documented as of this encounter Visit Diagnoses Diagnosis Elevated ferritin- Primary Other abnormal blood chemistry documented in this encounter Care Teams Biological Science Aide Relationship Specialty Start Date End Date Shi Gonzales MD [address] [place] [phone] PCP - General Family Practice 03/23/21 documented as of this encounter
--- OUTSIDE RECORDS SUMMARY | 2025-02-04 12:05 | XMS_ITS | Clinical Summary ---
Author Organization [facility] Clinical [facility] Address [address] [place] [address] Care Team Providers Care Door Fitter Name Role Phone Brock Abernathy MD Primary Care Provider [phone] Allergies No known active allergies Medications aspirin 81 mg enteric coated tablet Take 1 tablet (81 mg total) by mouth daily Active rOPINIRole (REQUIP) 0.5 mg tablet Take 1 tablet (0.5 mg total) by mouth nightly at bedtime 4 Active traZODone (DESYREL) 100 mg tablet TAKE [...] by mouth daily as needed 4 Active senna (Senna Lax) 8.6 mg tabletIndication s:Constipation, unspecified constipation type Take 1 tablet by mouth daily 30 tablet 1 5 Active allopurinoL (ZYLOPRIM) 300 mg tablet Take 1 tablet (300 mg total) by mouth daily 2 02/05/20 25 Discontinu ed(Patient Reported) Active Problems Problem Noted Date Diagnosed Date Constipation 02/04/2025 Assessment & Plan (02/04/2025 9:51 AM INTERIM CONTROLLER): Patient has been dealing with constipation for while Takes Colace daily fqco-[id number] with slight improvement Take senna laxative with Colace daily Patient was encouraged to reach out if it is not improving, can add on MiraLax as needed Patient will have a screening colonoscopy as referred Orders: senna (Senna Lax) 8.6 mg tablet; Take 1 tablet by mouth daily Memory impairment 02/04/2025 Assessment & Plan (02/04/2025 9:51 AM INTERIM CONTROLLER): Patient remains to have short-term memory issues Per patient has improved slightly and then became worse Patient was ordered an MRI and neurology referral, encouraged to complete B12 and folic acid were unremarkable Moderate major depression 11/19/2024 Assessment & Plan (11/19/2024 1:40 PM CDT): Currently controlled Continue current medications However there is a concern regarding serotonin syndrome Hypertension, essential 11/19/2024 Assessment & Plan (02/04/2025 9:51 AM INTERIM CONTROLLER): Losartan was stopped last visit, blood pressure remains to be controlled Controlled blood pressure with the medications, continue to monitor closely No more episodes of lightheadedness and dizziness Assessment & Plan (12/24/2024 1:37 PM CDT): [...] follow with Hematology Has hereditary hemochromatosis per thermocouple tester note Patient needs to undergo phlebotomy regularly Resolved Problems Problem Noted Date Diagnosed Date Resolved Date Chronic renal impairment, st age 3 (moderate), unspecified whether stage 3a or 3b CKD 11/19/2024 0 11/19/2024 Encounters Date Type Department Care Team Description 02/04/2025 9:30 AM INTERIM CONTROLLER Office Visit [address] [place] [address] Brock Abernathy MD Hypertension, essential (Primary Dx); Constipation, unspecified constipation type; Screening for colon cancer; Memory impairment 12/24/2024 10:30 AM CDT Office Visit [address] [place] [address] Brock Abernathy MD Hypertension, essential (Primary Dx); Syncope, unspecified syncope type; Polycythemia; Simple hepatic cyst; Gait disturbance; Blurry vision, bilateral 12/24/[address] [place] [address] Brock Abernathy MD 12/17/2024 12:42 PM CDT - 12/17/2024 11:59 PM CDT Hospital Encounter [id number] [place] [address] Liver cyst Discharge Disposition: Discharge to home or self care 11/30/2024 Results Follow-Up [address] [place] [phone] Brock Abernathy MD Vitamin B12, Thyroid Function [place], Folate 11/27/[address] [place] [address] Brock Abernathy MD Medical Question/Miscellaneou s 11/19/2024 11:00 AM CDT Office Visit [address] [place] [address] Brock Abernathy MD Hypertension, essential [...] on file Legal Sex Male 4:29 AM INTERIM CONTROLLER Gender Identity Not on file Sexual Orientation Not on file Last Filed Vital Signs Vital Sign Reading Time Taken Comments Blood Pressure 114/70 02/04/2025 9:22 AM INTERIM CONTROLLER Pulse 84 02/04/2025 9:22 AM INTERIM CONTROLLER Temperature 36.1 C (96.9 F) 12/24/2024 9:58 AM CDT Respiratory Rate 18 02/04/2025 9:22 AM INTERIM CONTROLLER Oxygen Saturation 97% 02/04/2025 9:22 AM INTERIM CONTROLLER Inhaled Oxygen Concentration - - Weight 79.7 kg (175 lb 9.6 oz) 02/04/2025 9:22 A M INTERIM CONTROLLER Height 172.7 cm (5' 8) 02/04/2025 9:22 AM INTERIM CONTROLLER Body Mass Index 26.7 02/04/2025 9:22 AM INTERIM CONTROLLER Plan of Treatment Health Maintenance Due Date Last Done Comments Colon Cancer Screening-Colonoscopy 1965 Hepatitis C Screening 1965 Prostate Cancer Screening-PSA 1965 Regular Well Visit/Exam 18-64 1983 Covid-19 Vaccine ( season) 2024 02/06/2024, 09/22/2021, 01/19/2021, Additional history exists Influenza Vaccine (#1) 2025 , 01/28/2021, 11/18/2019, Additional history exists Postponed from 11/02/2024 (Patient declined, but will receive in the future) Depression Screening 02/04/2026 02/04/2025, 02/04/2025, 12/24/2024, Additional history exists DTaP/Tdap/Td Vaccine (3 - [...] thickening or pericholecystic fluid. No positive sonographic Moro sign reported. BILIARY: No ductal dilatation. Common duct measures 0.2 cm . ASCITES: None. OTHER: No other significant finding. IMPRESSION: 1.0 cm hypoechoic focus under the hemidiaphragm most suggestive of simple hepatic cyst. THIS IS AN ELECTRONICALLY VERIFIED FINAL REPORT 12/19/2024 9:12 AM - Electronically signed by Chang Pal M.D. RB: RB Report ID: [id number] Reading Location: [id number] Procedure Note Chang Pal MD - 12/19/2024 [...] wall thickening or pericholecystic fluid. No positivesonographic Moro sign reported. BILIARY: No ductal dilatation. Common duct measures 0.2 cm . ASCITES: None. OTHER: No other significant finding. IMPRESSION: 1.0 cm hypoechoic focus under the hemidiaphragm mostsuggestive of simple hepatic cyst. THIS IS AN ELECTRONICALLY VERIFIED FINAL REPORT 12/19/2024 9:12 AM - Electronically signed by Chang Pal M.D. RB: RB Report ID: [id number] Reading Location: [id number] Brock Abernathy MD IM US PROCEDURES Final Result * Folate (11/27/2024 10:13 AM CDT) Folate 5.1 >3.0 ng/mL [facility] - 01 Comment: A serum folate concentration of less than 3.1 ng/mL is considered to represent clinical deficiency. Blood 11/27/2024 10:1 3 AM CDT 11/27/2024 Narrative [facility] - 11/28/2024 9:36 AM CDT Performed at: [address] [place] [id number] Metrologist: Silver Borja PhD, Phone: [phone] Brock Abernathy MD LAB BLOOD ORDERABLES Final Resu lt Performing Organization Address [facility] Co de Phone Number [facility] - 01 * Vitamin B12 (11/27/2024 10:13 AM CDT) Vitamin B12 459 232 - 1,245 pg/mL [facility] - 01 Blood 11/27/2024 10:1 3 AM CDT 11/27/2024 Narrative [facility] - 11/28/2024 9:36 AM CDT Performed at: [address] [place] [id number] Metrologist: Silver Borja PhD, Phone: [phone] Brock Abernathy MD LAB BLOOD ORDERABLES Final Resu lt Performing Organization Address [facility] Co de Phone Number [facility] - 01 * Thyroid Function [place] (11/27/2024 10:12 AM CDT) TSH 1.930 0.450 - 4.500 uIU/mL [facility] - 01 Comment: No apparent thyroid disorder. Additional testing not indicated. In rare instances, Secondary Hypothyroidism as well as Subclinical Hypothyroidism have been reported in some patients with normal TSH values. Blood 11/27/2024 10:1 2 AM CDT 11/27/2024 Narrative [facility] - 11/28/2024 9:36 AM CDT Performed at: [address] [place] [address] [place], [place] [id number] Metrologist: Silver Borja PhD, Phone: [phone] Brock Abernathy MD LAB BLOOD ORDERABLES Final Resu lt [facility] - 01 from Last 3 Months Insurance [facility] Care Teams Door Fitter Relationship Specialty Start Date End Date Brock Abernathy MD [address] [place] [address] [place] [address] PCP - General Family Medicine 11/19/24
--- OUTSIDE RECORDS SUMMARY | 2025-02-04 12:05 | XMS_ITS | Encounter Summary ---
Author Organization [facility] Address [address] [place] [address] Care Team Providers Care Ironworker Wire Fence Erector Name Role Phone Shi Gonzales MD Primary Care Provider [phone] Encounter Details Date Type Department Care Team (Late Contact Info) Description 02/04/2025 Orders Only [facility] Oncology and Hematology [place] [address] [address] [place] [phone] Curry Bowles MD [address] [place], [place] [address] [address] [place] [address] Social History Tobacco Use Types Packs/Day Years Used Date Smoking Tobacco: Never Smokeless Tobacco: Never Alcohol Use Standard Drinks/Week Comments Yes 0 (1 standard drink = 0.6 oz pur e alcohol) Sex and Gender Information Value Date Recorded Sex Assigned at Not on file Legal Sex Male 12:37 PM ORTHOTIST/PROSTHETIST Gender Identity Not on file Sexual Orientation Not on file documented as of this encounter Plan of Treatment Upcoming Encounters Date Type Department Care Team (Late st Contact Info) Description 08/05/2025 11:30 AM CDT Office Visit [facility] Oncology and Hematology [facility] [address] [place] [address] Curry Bowles MD [facility] [address] [place] [address] documented as of this encounter Procedures Procedure Name Priority Date/Time Associated Diagnosis Comments CBC WITH AUTODIFFERENTIAL Routine 2024 11:01 AM ORTHOTIST/PROSTHETIST documented in this encounter Results * CBC WITH AUTODIFFERENTIAL (02/03/2025 11:01 AM ORTHOTIST/PROSTHETIST) Blood us Curry Bowles MD HEMATOLOGY ORDERABLES Final Res ult documented in this encounter Visit Diagnoses Not on filedocumented in this encounter Care Teams Ironworker Wire Fence Erector Relationship Specialty Start Date End Date Shi Gonzales MD [address] [place] [phone] PCP - General Family Practice 03/23/21 documented as of this encounter
--- OUTSIDE RECORDS SUMMARY | 2025-02-04 12:05 | XMS_ITS | Encounter Summary ---
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 No / Unsure 01/29/2022 10:30 AM LOCAL COMBINATION TRUCK DRIVER documented as of this encounter Plan of [...] on filedocumented in this encounter Care Teams Locomotive Crane Operator Relationship Specialty Start Date End Date Shi Gonzales MD [address] [place], [place] [id number] PCP - General FAMILY PRACTICE 01/10/22 documented as of this encounter
--- OUTSIDE RECORDS SUMMARY | 2025-02-04 12:05 | XMS_ITS | Clinical Summary ---
Author Organization 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
--- OUTSIDE RECORDS SUMMARY | 2025-02-04 12:05 | XMS_ITS | Clinical Summary ---
Author Organization [facility] Address [address] [place] [address] Care Team Providers Care Base Loader Name Role Phone Shi Gonzales MD Primary Care Provider [phone] Allergies No known active allergies Medications rosuvastatin (CRESTOR) 20 mg tablet Take 20 mg by mouth daily. 02/13/2021 Active sertraline (ZOLOFT) 50 mg tablet Take 50 mg by mouth daily. 03/12/2021 Active tadalafil (CIALIS) 5 mg tablet TAKE 1 TO 4 TABLETS BY MOUTH ONCE DAILY NEEDED Active rOPINIRole (REQUIP) 0.5 mg tablet take 1 tablet by mouth every day at bedtime 11/15/2023 Active busPIRone (BUSPAR) 5 mg tablet 5 mg 3 times daily. 07/18/2024 Active aspirin (ECOTRIN EC) 81 mg Tablet, Delayed Release (E.C.) Take 81 mg by mouth daily. Active Active Problems Problem Noted Date Diagnosed Date Erythrocytosis 03/23/2021 Encounters Date Type Department Care Team Description 02/04/2025 11:15 AM HULL OUTFIT SUPERVISOR Office Visit [facility] Oncology and Hematology - [place] [address] [place] [phone] Curry Bowles MD Elevated ferritin (Primary Dx) 02/04/2025 Orders Only [facility] Oncology and Hematology [place] [address] [place] [address] Curry Bowles MD 12/30/2024 External Device Data STL ABSTRACTION Provider, Abstract 12/23/2024 External Device Data STL ABSTRACTION Provider, Abstract 12/08/2024 Abstract [facility] Oncology and Hematology - [place] [address] Curry Bowles MD 12/03/2024 4:30 PM CDT Telephone Check Up [facility] Oncology and Hematology - [place] [address] [place] [phone] Curry Bowles MD Polycythemia, secondary (Primary Dx) 11/30/2024 Telephone [facility] Oncology and Hematology - [place] [address] [place] [address] Curry Bowles MD Lab Results 11/30/2024 Orders Only [facility] Oncology and Hematology - [place] [address] Curry Bowles MD 11/25/2024 Orders Only [facility] Oncology and Hematology - [place] [address] [place] [phone] Curry Bowles MD 11/24/2024 Orders Only [facility] Oncology and Hematology - [place] [address] [place] [phone] Curry Bowles MD from Last 3 Months [...] file 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 OUTFIT SUPERVISOR Gender Identity Not on file Sexual Orientation Not on file Last Filed Vital Signs Vital Sign Reading Time Taken Comments Blood Pressure 110/76 02/04/2025 11:05 AM HULL OUTFIT SUPERVISOR Pulse 72 02/04/2025 11:05 AM HULL OUTFIT SUPERVISOR Temperature 36.1 C (97 F) 02/04/2025 11:05 AM HULL OUTFIT SUPERVISOR Respiratory Rate 15 02/04/2025 11:05 AM HULL OUTFIT SUPERVISOR Oxygen Saturation 98% 02/04/2025 11:05 AM HULL OUTFIT SUPERVISOR Inhaled Oxygen Concentration - - Weight 79.6 kg (175 lb 6.4 oz) 02/04/2025 11:05 AM HULL OUTFIT SUPERVISOR Height 172.7 cm (5' 8) 07/13/2021 4:00 PM CDT Body Mass Index 26.67 07/13/2021 4:00 PM CDT Plan of Treatment Upcoming Encounters Date Type Department Care Team (Late st Contact Info) Description 08/05/2025 11:30 AM CDT Office Visit [facility] Oncology and Hematology - [place] [address] [facility] [address] [place] [address] Curry Bowles MD [address] [facility] [address] [place] [address] Health Maintenance Due Date Last Done Comments Pre-Diabetes and Diabetes Screening 1965 HEPATITIS B VACCINES (1 of 3 - 19+ 3-dose series) 1984 04/02/2024, 08/22/2023 COLORECTAL SCREENING 2010 Colorectal Cancer Screening 2010 FIT-DNA Q 3 years 2010 FIT/FOBT Q 1 year 2010 Flex Sig/CT Colonography Q 5 years 2010 DTAP/TDAP/TD VACCINES (2 - T d or Tdap) 02/16/2019 02/16/2009 Preventative Visit- Commercial 03/04/2024 INFLUENZA VACCINE (#1) 2024 , 01/28/2021, 11/18/2019, Additional history exists ZOSTER VACCINE Completed 10/14/2020, 07/12/2020 Procedures Procedure Name Priority Date/Time Associated Diagnosis Comments CBC WITH AUTODIFFERENTIAL Routine 2024 11:01 AM HULL OUTFIT SUPERVISOR HEREDITARY HEMOCHROMATOSIS DNA MUTATION ANALYSIS Routine 11/19/2024 12:56 PM CDT JAK2 EXON 12 MUTATION ANALYSIS Routine 11/19/2024 10:54 AM CDT ERYTHROPOIETIN LEVEL Routine 11/19/2024 7:48 AM CDT from Last 3 Months Results * CBC WITH AUTODIFFERENTIAL (02/03/2025 11:01 AM HULL OUTFIT SUPERVISOR) Blood us Curry Bowles MD HEMATOLOGY ORDERABLES Final Res ult * HEREDITARY HEMOCHROMATOSIS DNA MUTATION ANALYSIS (11/19/2024 12:56 PM CDT) us Curry Bowles MD CHEMISTRY ORDERABLES COM Final Result * JAK2 EXON 12 MUTATION ANALYSIS (11/19/2024 10:54 AM CDT) Blood us Curry Bowles MD HEMATOLOGY ORDERABLES COM Final Result * ERYTHROPOIETIN LEVEL (11/19/2024 7:48 AM CDT) Blood us Curry Bowles MD CHEMISTRY ORDERABLES Final Resu lt from Last 3 Months Insurance [facility] [id number] [place] [id number] [facility] [id number] [place] [id number] Care Teams Base Loader Relationship Specialty Start Date End Date Shi Gonzales MD [address] [place] [phone] PCP - General Family Practice 03/23/21
[2025-02-04 13:10] LABS: Iron 47 ug/dL (49-181)
[2025-02-04 13:22] LABS: Percent Iron Saturation 13 % (20-50)
[2025-02-04 13:52] LABS: Ferritin 57.70 ng/mL (11.1-264)
== END 2025-02-04 10:46 | disposition home or self-care (01) ==
LOC: ANHLAB 10:47
PROVIDERS: PCP Family Medicine; Visit Provider Internal Medicine Hematology & Oncology
DX: D75.1 Secondary polycythemia (principal)
CPT/HCPCS: 36415; 82728; 83540; 83550